=== PATIENT | male | born 1985 | race African-American/Black ===

== ENCOUNTER 2022-10-31 14:06 | Outpatient (AMB) | payer OTHER, SELFPAY ==
[2022-10-31 14:08] VITALS: BP 102/60; PULSE 84; TEMP 36.2; O2SAT 98; BMI 26.6
--- NOTE | 2022-10-31 14:08 | AM.OFFWIN_ITS ---
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 Denies any abdominal pain, shortness of breath, GI symptoms. Reports many of his close contacts have been sick. [facility] Social History Patient Tobacco Use Status: Never used Tobacco Review of Systems Const All systems reviewed & are unremarkable except as noted in HPI and below Physical Exam Vital Signs: Last Vital Signs Temp 97.1 F 10/31/22 14:08 Pulse 84 10/31/22 14:08 BP 102/60 10/31/22 14:08 Pulse Ox 98 10/31/22 14:08 Oxygen Delivery Method Room Air 10/31/22 14:08 BMI result Body Mass Index 26.6 Const General: cooperative, no acute distress and ill appearing acutely HEENT Head: Yes normal to inspection and Yes normocephalic Ears: hearing grossly normal bilaterally, external ears normal and TM's normal bilaterally General nose exam: Normal external nose present and Normal nasal mucous membranes and turbinates present Face and sinus: Yes normal facial exam and Yes sinuses nontender Mouth: Normal oral and palatal mucosa present and moist mucous membranes Throat: Yes posterior oropharynx abnormal (Mild erythema) Neck Neck: Yes no lymphadenopathy Resp Effort & Inspection: normal respiratory effort and able to speak in complete sentences Auscultation: clear to auscultation bilaterally Cardio Jugular venous distension: no JVD Palpation: normal PMI Rate: regular rate Rhythm: regular rhythm Skin General skin exam: no rashes or lesions noted Extrem General: Yes capillary refill normal and Yes no clubbing, cyanosis or edema Psych Appearance: grossly normal Mental Status: mental status grossly normal Speech and movement: Normal speech and movement present Assessment & Plan Assessment & Plan (1) Upper respiratory infection: Code(s): J06.9 - Acute upper respiratory infection, unspecified Qualifiers: URI type: unspecified viral URI Qualified Code(s): J06.9 - Acute upper respiratory infection, unspecified Plan: Symptoms consistent with viral illness. Advised rest, hydration, conservative measures/[id number] medications as needed for symptom management. If he does not improve with time and conservative measures, or if symptoms worsen or new symptoms develop, he can return to the clinic for further evaluation. Viral swab obtained and patient will be notified with these results once they are available. Patient agrees to plan. Orders: Orders SARS-CoV2/FLU/RSV Today J06.9 - Acute upper respiratory infection, unspecified Coding Level of Care Code Est Pt Level 3 (65097) Diagnoses Upper respiratory infection J06.9 URI type: unspecified viral URI
== END 2022-10-31 14:44 | disposition home or self-care (01) ==
PROVIDERS: Visit Provider Nurse Practitioner Family
DX: J06.9 Acute upper respiratory infection, unspecified (principal)
CPT/HCPCS: 99213

== ENCOUNTER 2022-10-31 16:58 | Outpatient (REF) | payer OTHER, SELFPAY ==
[2022-10-31 17:54] LABS: Influenza A PCR NEGATIVE (Negative); Influenza B PCR NEGATIVE (Negative); Resp Syncy Virus RNA Qual PCR NEGATIVE (Negative); SARS COV2 PCR INHOUSE NEGATIVE (Negative)
== END 2022-10-31 16:59 | disposition home or self-care (01) ==
LOC: HO.LNP 16:58
PROVIDERS: Visit Provider Nurse Practitioner Family
DX: J06.9 Acute upper respiratory infection, unspecified (principal); Z20.822 Contact with and (suspected) exposure to COVID-19
CPT/HCPCS: 0241U

== ENCOUNTER 2023-10-09 10:00 | Outpatient (AMB) | payer OTHER, SELFPAY ==
--- NOTE | 2023-10-09 10:09 | A.OFFPC_ITS ---
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 ?? Prior PCP:? Dr Bui in [place], [place] Last office visit/CPE:? a few yrs ago Acute issue(s):? Anxiety w/ PTSD. Had a therapist. Longstanding anxiety and has worsened again. ?? PMHx:?Anxiety w/ PTSD, Syncope x 2 in 2021. Cardiology dx'd bradycardia. SurgHx:?R 4th Metacarpal fracture repair w/ plate. FHx:? Dad: CAD, early LA, arrhythmia and pacer. GM: Lung CA, Pancreatic CA. GF: DM SocHx: Quit 2 yrs ago. EtOH None. MJ Daily. No drugs. 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 1. Little interest or pleasure in doing things: not at all 2. Feeling down, depressed, or hopeless: nearly every day 3. Trouble falling or staying asleep, or sleeping too much: several days 4. Feeling tired or having little energy: nearly every day 5. Poor appetite or overeating: several days 6. Feeling bad about yourself - or that you are a failure or have let yourself or your family down: several days 7. Trouble concentrating on things, such as reading the newspaper or watching television: not at all 8. Moving or speaking so slowly that other people could have noticed. Or the opposite - being so fidgety or restless that you have been moving around a lot more than usual: not at all 9. Thoughts that you would be better off or of hurting yourself in some way: not at all Total score: 9 Depression Screening Interpretation: Positive Depression Screening Done: Yes 24175 - PHQ-9 Billing: Yes Source: Developed by Drs. Rudy Morales, Linda Sahu, Jeffery Choi and colleagues, with an educational brandon from [employer]. Thrive Questionnaire Date Thrive assessed: 10/09/23 I am a: Patient What is your living situation today?: I have a steady place to live Within the past 12 months, did the food you bought not last and you didn't have the money to get more?: Never true Within the past 12 months, did you worry whether your food would run out before you got money to buy more?: Never true Do you have trouble paying for medicines?: No Do you have trouble getting transportation to medical appointments?: No Do you have trouble paying your heating and electricity bill?: No Do you have trouble taking care of your child, family member or friend?: No Do you have trouble with day-to-day activities such as bathing, preparing meals, shopping, managing finances, etc.?: No Are you currently unemployed and looking for a job?: No Are you interested in more education?: No Please select the resources that you would like help with: None Currently or been in a relationship where the following occur: No concerns reported THRIVE Score: 0 AUDIT C Alcohol Use Questionnaire (AUDIT-C) 1. How often do you have a drink containing alcohol?: Never 3. How often do you have six or more drinks on one occasion?: Never Total Score: 0 Score Reviewed/Action Taken: Yes TAD-7 AMB Questionnaire TAD-7 Date TAD - 7 assessed: 10/09/23 Feeling nervous, anxious, or on edge: 3 = Nearly every day Not being able to stop or control worryin = Nearly every day Worrying too much about different things: 3 = Nearly every day Trouble relaxin = Nearly every day Being so restless that it is hard to sit still: 1 = Several days Becoming easily annoyed or irritable: 3 = Nearly every day Feeling afraid as if something awful might happen: 0 = Not at all Total TAD-7 score (0-4 normal; 5-9 mild; 10-14 moderate; 15-21 severe): 16 Source: Developed by Drs. Rudy Morales, Linda Sahu, Jeffery Choi and colleagues, with an educational brandon from [employer]. TAD-7 Assessment Billing TAD-7 Assessment Tool: TAD-7 Assessment 77852 ACT Questionnaire In the past 4 weeks, how much of the time did your asthma keep you from getting as much done at work, school or at home?: Most of the time During the past 4 weeks, how often have you had shortness of breath?: More than once a day During the past 4 weeks, how often did your asthma symptoms wake you up at night or earlier than usual in the morning?: Not at all During the past 4 weeks, how often have you had to use your rescue inhaler or nebulizer medication?: Not at all How would you rate your asthma control during the past 4 weeks?: Somewhat controlled ACT Interpretation: Positive Score: 16 Review of Systems Const Denies chills, Denies fatigue, Denies fever(s), Denies headache(s) and Denies weakness ENT Denies dizziness and Denies headache(s) Card Denies chest pain, Denies lightheadedness, Denies dyspnea and Denies other (Palpitations) Resp Denies cough, Denies dyspnea, Denies wheezing and Denies other ( shortness of breath) Musc Denies numbness and Denies tingling Neuro Denies dizziness, Denies headache(s), Denies numbness, Denies tingling, Denies paresthesias and Denies weakness Psych Reports anxiety Endo Denies fatigue Aller/Immun Denies wheezing Physical exam (Primary Care) Vital Signs: Last Vital Signs Temp 98 F 10/09/23 10:19 Pulse 55 10/09/23 10:19 Resp 18 10/09/23 10:19 BP 100/60 10/09/23 10:19 Pulse Ox 97 10/09/23 10:19 Oxygen Delivery Method Room Air 10/09/23 10:19 BMI result Body Mass Index 29.6 Tobacco/Smoking Status: Tobacco use Status Tobacco use date assessed 10/09/23 10/09/23 10:20 Patient Tobacco Use Status Never used Tobacco 10/09/23 10:20 e-Cigarette/Vaping Use Never Used 10/09/23 10:20 PHQ-9: PHQ-9 Score PHQ-9: Total score 9 10/09/23 10:24 Depression Screening Interpretation: Positive Thrive Assessment: Date of Thrive Assessment Date Thrive assessed 10/09/23 10/09/23 10:20 Currently or been in a relationship where the following occur: No concerns reported Const General: no acute distress and well developed Nutritional Appearance: well nourished Orientation/consciousness: patient oriented x3 HENMT Head: Yes normocephalic and Yes atraumatic Eyes General: appearance normal, both eyes and all related structures Pupils: Equal, round and reactive pupils present EOM: EOMs intact bilaterally Resp Effort & Inspection: normal respiratory effort Auscultation: clear to auscultation bilaterally Cardio Rate: bradycardic Rhythm: regular rhythm Heart sounds: S1 normal heart sound present, S2 normal heart sound present, no gallops, no murmurs and no rubs Neuro General: patient oriented x3 and gait normal Cranial nerves: Yes Equal, round and reactive pupils present Psych Affect: normal affect Assessment and Plan Assessment & Plan (1) Depression with anxiety: Code(s): F41.8 - Other specified anxiety disorders Plan: Depression?and?anxiety - longstanding?symptoms?with?PTSD Patient?also?notes?periods?of?soon?did?depression?alternating?with?elevated?mood . Possible?bipolar?disorder Will?trial?Abilify?at?bedtime Will?ask?the?nurse?navigator?to?connect?him?with?a?therapist (2) PTSD (post-traumatic stress disorder): Code(s): F43.10 - Post-traumatic stress disorder, unspecified Plan: As?above (3) Athlete's foot: Code(s): B35.3 - Tinea pedis Plan: Avoid?excess?moisture?and?change?socks?frequently?throughout?day Will?give?him?a?script?for?terbinafine?cream (4) Bradycardia: Code(s): R00.1 - Bradycardia, unspecified Plan: History?of?bradycardia. P atient?had?seen?a?sheet metal helper?but?had?incomplete?workup.??Syncope?x2?but?not?re cently. Will?check?EKG?at?next?visit May?need?continued?workup (5) History of syncope: Code(s): Z87.898 - Personal history of other specified conditions Plan: As?above (6) Hand pain: Code(s): M79.643 - Pain in unspecified hand Plan: Bilateral?hand?pain Likely?tendinitis?but?possible?arthritis?as?well Start?meloxicam May?need?imaging?or?may?need?referral?to?hand?surgery (7) Laboratory exam ordered as part of routine general medical examination: Code(s): Z00.00 - Encounter for general adult medical examination without abnormal findings Plan: Check?lab Orders: Orders Comprehensive [place]. Panel Fast Today Z00.00 - Encounter for general adult medical examination without abnormal findings Lipid Panel Today Z00.00 - Encounter for general adult medical examination without abnormal findings AMB EKG-In Office Today R00.1 - Bradycardia, unspecified Microalbumin, Random (w Creat) Today I10 - Essential (primary) hypertension TSH reflex Free T4 Today Z00.00 - Encounter for general adult medical examination without abnormal findings UA and rflx microscopic Today Z00.00 - Encounter for general adult medical examination without abnormal findings Referrals Psychiatry Outpatient Consultation Service F41.8 - Other specified anxiety disorders, F43.10 - Post-traumatic stress disorder, unspecified Medications: New aripiprazole (Abilify) 2 mg PO BEDTIME 30 days 30 tabs 1RF terbinafine HCl 1% (Antifungal (terbinafine)) 1 appl topical BID 30 days 30 grams 1RF meloxicam 15 mg PO DAILY 30 days 30 tabs 2RF Coding Level of Care Code New Pt Level 4 (44136) Diagnoses Depression with anxiety F41.8 PTSD (post-traumatic stress disorder) F43.10 Athlete's foot B35.3 Bradycardia R00.1 History of syncope Z87.898 Hand pain M79.643 Laboratory exam ordered as part of routine general medical examination Z00.00 Additional Codes TAD-7 Assessment Billing - ATD-7 Assessment Tool: TAD-7 Assessment 22329 ([id number])
[2023-10-09 10:19] VITALS: BP 100/60; PULSE 55; RESP 18; TEMP 36.6; O2SAT 97; BMI 29.6
== END 2023-10-09 10:59 | disposition home or self-care (01) ==
PROVIDERS: PCP Family Medicine; Visit Provider Family Medicine
DX: F41.8 Other specified anxiety disorders (principal); F43.10 Post-traumatic stress disorder, unspecified; B35.3 Tinea pedis; R00.1 Bradycardia, unspecified; Z87.898 Personal history of other specified conditions; M79.643 Pain in unspecified hand; Z00.00 Encounter for general adult medical examination without abnormal findings
CPT/HCPCS: 96127; 99204

== ENCOUNTER 2023-11-09 14:13 | Outpatient (AMB) | payer OTHER, SELFPAY ==
--- NOTE | 2023-11-09 14:39 | MHC.OFFVISPS ---
Intake Intake Visit Reasons: consultation Basketball Referee Required: No Allergies omeprazole Adverse Reaction (Intermediate, Verified 10/09/23 10:18) Hives Medication List - Last Reconciled 11/09/23 by Carol Livingston APRN aripiprazole (Abilify) 2 mg PO BEDTIME 30 days meloxicam 15 mg PO DAILY 30 days terbinafine HCl 1% (Antifungal (terbinafine)) 1 appl topical BID 30 days HPI- Psychiatric Chief Complaint: consultation HPI Narrative: pt reports significant mood symtpms and anxiety; histroy of childhood adverse events including foster care x first 11 yrs and then back with hismother for one year until into [facility] and [facility] custody after that; reports all a very bad experience. Pt reports being in and outt of incarceraton for fighting and stealing in his teens and 20s. 2011 was the last time he was in senior living. He has worked hard to stabilize his life. 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 He bought his own home and has custody of his son age10. He has a GF and feels bad that his mood effects their relationship. He reports depressed mood, anger episodes, impulsive spending, overeating at night, worrying about everything including house, bills, his work. He reports periods of elevated mood where he feels excessively happy and buys things he doesn't need. He reports these episodes don't last long at most 24 hours until he feels depressed again and regretful He denies nightmares but only sleeps 930-1am abnd then is awake much of the night. He does not know what triggers his anger. He is taking abilify 2mg - he reports no side effects but no relief as well. discussed options for medication and risk of using an antidepressant if pt has bipolar type depression. He agrees to trial of depakote and then will likely increase abilify Past Psychiatric History: many years of therapy and meds in [facility] and [facility] and then in senior living. pt does not recall any particular meds and didnt feel any helped. Subjective Subjective Subjective Medication Compliance: Yes Side effects from medications: No Review of Systems Medical Review of Systems: unchanged Review of Systems Review of Systems bradycardia and hx of syncope Mental Status Exam Mental Status Exam Patient Appearance: Well Grooomed and Appropriate Patient Orientation: Person, Place, Time and Situation Level of Consciousness: Awake and Appropriate Patient Behavior: Appropriate, Cooperative and Crying Mood Description: Sad Affect Description: Sad Patient Cognition Impaired: No Ability to Follow Directions: Good Speech Pattern: Clear Memory Description: Intact Hallucinations: None Delusions: Not Present Thought Process: Intact Thought Content: positive for Intact Judgement: Good Assessment and Plan Assessment & Plan (1) History of syncope: Status: Acute Code(s): Z87.898 - Personal history of other specified conditions (2) Bradycardia: Status: Acute Code(s): R00.1 - Bradycardia, unspecified (3) Bipolar II disorder: Status: Acute Code(s): F31.81 - Bipolar II disorder (4) PTSD (post-traumatic stress disorder): Status: Acute Code(s): F43.10 - Post-traumatic stress disorder, unspecified Plan will use combination of depakote and abilify to treat Bipolar depression and PTSD start low dose due to bradycardia and syncope encouraged fluids and normal salt intake ekg ordered Medications: New divalproex (Depakote) 125 mg orally Take one tablet at bedtime x10 days then increase to 2 tablets at bedtime x 10 days then increase to 3 tablets at bedtime 90 tabs 0RF Orders: Orders ECG 12 lead EKG Today R00.1 - Bradycardia, unspecified, Z87.898 - Personal history of other specified conditions Counseling and coordination of Care Pt. Self Management counseling: Maintenance-social rhythm, Mod caffeine/ETOH intake, Nutrition education and improvement, Sleep hygiene, Behavior activation and General coping skills Medication management counseling: Effectiveness, Side effects, Dosing range, Duration, Drug interaction and Adherence Diagnosis and Prognosis Counseling: Accuracy of diagnosis, Prognosis over time, Impact of diagnosis on life functions, Impact of family relationship, Problematic behaviors secondary to diagnosis and Adequacy of current interventions Details: I spent 75 minutes reviewing the record, seeing the patient and documenting in the medical record. Counseling provided to the patient/caregiver as outlined below. Addressed patient/caregiver concerns regarding current medication regime including effective adherence. Addressed patient/caregiver concerns regarding diagnosis and prognosis including accuracy of diagnosis, prognosis over time, impact of diagnosis. Addressed patient/caregiver concerns regarding impact of recent stressors. 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 has Gf. 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
== END 2023-11-09 15:13 | disposition home or self-care (01) ==
LOC: HO.HOP 14:13
PROVIDERS: PCP Family Medicine; Visit Provider Clinical Nurse Specialist Psychiatric/Mental Health
DX: F31.81 Bipolar II disorder (principal); Z87.898 Personal history of other specified conditions; R00.1 Bradycardia, unspecified; F43.10 Post-traumatic stress disorder, unspecified
CPT/HCPCS: 90792

== ENCOUNTER → 2023-11-09 14:13 | Outpatient (BNVA) | payer OTHER, SELFPAY | PROVIDERS: PCP Family Medicine; Visit Provider Clinical Nurse Specialist Psychiatric/Mental Health | DX: F31.81 Bipolar II disorder (principal); F43.10 Post-traumatic stress disorder, unspecified; R00.1 Bradycardia, unspecified; Z87.898 Personal history of other specified conditions | CPT/HCPCS: 90792 ==

== ENCOUNTER 2023-11-30 22:57 | Outpatient (AMB) | payer OTHER, SELFPAY ==
--- NOTE | 2023-11-30 15:10 | MHC.OFFVISPS ---
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 Required: No Allergies omeprazole Adverse Reaction (Intermediate, Verified 10/09/23 10:18) Hives Medication List - Last Reconciled 11/30/23 by Carol Livingston APRN aripiprazole (Abilify) 2 mg PO BEDTIME 30 days divalproex (Depakote) 125 mg orally Take one tablet at bedtime x10 days then increase to 2 tablets at bedtime x 10 days then increase to 3 tablets at bedtime meloxicam 15 mg PO DAILY 30 days terbinafine HCl 1% (Antifungal (terbinafine)) 1 appl topical BID 30 days HPI- Psychiatric Chief Complaint: f/u consultation HPI Narrative: pt improving ; depression, irritability and anxiety improving; tolerating the depakote; no dizzinesss. will start the Depakote 375mg at bedtime tonight; no SI no HI; has some daytime fatigue; he is working 6 days a week every week. no medical changes; no SI or HI Past Psychiatric History: many years of therapy and meds in [facility] and [facility] and then in residential. pt does not recall any particular meds and didnt feel any helped. Subjective Subjective Subjective Medication Compliance: Yes Side effects from medications: No Review of Systems Medical Review of Systems: unchanged Mental Status Exam Mental Status Exam Patient Appearance: Well Grooomed and Appropriate Patient Orientation: Person, Place, Time and Situation Level of Consciousness: Awake and Appropriate Patient Behavior: Appropriate Mood Description: Calm Affect Description: Calm Patient Cognition Impaired: No Ability to Follow Directions: Good Speech Pattern: Clear Memory Description: Intact Hallucinations: None Delusions: Not Present Thought Process: Intact Thought Content: positive for Intact Judgement: Good Assessment and Plan Assessment & Plan (1) Bipolar II disorder: Status: Acute Code(s): F31.81 - Bipolar II disorder (2) Depression with anxiety: Status: Acute Code(s): F41.8 - Other specified anxiety disorders (3) Bradycardia: Status: Acute Code(s): R00.1 - Bradycardia, unspecified Plan increase depaokte to 375mg at bedtime x 10 days then got to 500mg at bedtime labs ordered VPA level, CBC, CMP and ekg pt has refills will swtich to depakote ER 500mg at bedtime once pt tolerates. continue abilify 2 mg daily Orders: Orders Valproate Today F31.81 - Bipolar II disorder Complete Blood Count Auto Diff Today Z79.899 - Other custodial (current) drug therapy Comprehensive Met. Panel Today Z79.899 - Other custodial (current) drug therapy Vitamin D 25-OH (D2 and D3) Today E55.9 - Vitamin D deficiency, unspecified Counseling and coordination of Care Medication management counseling: Effectiveness, Side effects, Dosing range, Duration, Drug interaction and Adherence Diagnosis and Prognosis Counseling: Accuracy of diagnosis, Prognosis over time, Impact of diagnosis on life functions, Impact of family relationship, Problematic behaviors secondary to diagnosis and Adequacy of current interventions Details: I spent [] minutes reviewing the record, seeing the patient and documenting in the medical record. Counseling provided to the patient/caregiver as outlined below. Addressed patient/caregiver concerns regarding current medication regime including effective adherence. Addressed patient/caregiver concerns regarding diagnosis and prognosis including accuracy of diagnosis, prognosis over time, impact of diagnosis. Addressed patient/caregiver concerns regarding impact of recent stressors. 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 has Gf. 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
== END 2023-11-30 22:58 | disposition home or self-care (01) ==
LOC: HO.HOP 22:57
PROVIDERS: PCP Family Medicine; Visit Provider Clinical Nurse Specialist Psychiatric/Mental Health
DX: F31.81 Bipolar II disorder (principal); F41.8 Other specified anxiety disorders; R00.1 Bradycardia, unspecified
CPT/HCPCS: 99214

== ENCOUNTER → 2023-11-30 22:57 | Outpatient (BNVA) | payer OTHER, SELFPAY | PROVIDERS: PCP Family Medicine; Visit Provider Clinical Nurse Specialist Psychiatric/Mental Health | DX: F31.81 Bipolar II disorder (principal); F41.8 Other specified anxiety disorders; R00.1 Bradycardia, unspecified | CPT/HCPCS: 99212 ==

== ENCOUNTER 2023-12-28 09:28 | Outpatient (REF) | payer OTHER, SELFPAY ==
[2023-12-28 09:47] LABS: MANUAL DIFF FLAG NO
[2023-12-28 10:17] LABS: Basophils Percent Auto 0.6 % (0-2); Eosinophils Absolute Auto 0.3 X10*3/uL (0.0-0.4); Eosinophils Percent Auto 5.1 % (0-4); Hematocrit 44.8 % (42.0-52.0); Hemoglobin 14.9 g/dl (14.0-18.0); Imm Gran Abs Auto 0.02 X10*3/uL (0.00-0.03); Imm Gran Pct Auto 0.4 % (0.0-0.4); Lymphocytes Percent Auto 37.6 % (20-40); Mean Corpuscular HGB Conc 33.3 g/dl (31.0-36.0); Mean Corpuscular Hemoglobin 28.5 pg (27.0-33.0); Mean Corpuscular Volume 85.7 fL (80.0-98.0); Mean Platelet Volume 10.9 fL (9.4-12.4); Monocytes Absolute Auto 0.3 X10*3/uL (0.1-1.2); Neutrophils Absolute Auto 2.7 x10*3/uL (2.0-8.3); Neutrophils Percent Auto 50.3 % (45-73); Platelet Count 204 X10*3/uL (160-400); Red Blood Count 5.23 X10*6/uL (4.60-5.80); Red Cell Distribution Width 13.2 % (11.0-16.0); White Blood Count 5.3 X10*3/uL (4.8-10.8)
[2023-12-28 10:39] LABS: Appearance Urine Clear; Color Urine Yellow; Glucose Urine UA Negative (Negative); Leukocyte Esterase Urine Negative (Negative); Nitrite Urine Negative (Negative); PH 7.5 (5.0-9.0); Specific Gravity - Urine 1.015 (1.005-1.025); Urine Blood Negative (Negative); Urine Ketones Trace mg/dL (Negative); Urine Protein Negative (Neg-Trace)
[2023-12-28 11:00] LABS: Alanine Aminotransferase 34 U/L (0-40); Albumin Level 4.2 g/dL (3.5-5.0); Alkaline Phosphatase 54 U/L (39-117); Anion Gap 11 (12-20); Aspartate Amino Transferase 32 U/L (5-37); Bilirubin Total 1.6 mg/dL (0.0-1.0); Blood Urea Nitrogen 11 mg/dL (9-16); Calcium 9.5 mg/dL (8.4-10.2); Carbon Dioxide 28 mmol/L (22-29); Chloride 107 mmol/L (96-108); Cholesterol 172 mg/dL (<200); Estimated Glomerular Filt Rate > 60; Glucose Fasting 99 mg/dL (60-99); Glucose Random 99 mg/dL (60-115); HDL Cholesterol 40 mg/dL (>40); LDL Cholesterol Calculated 114 mg/dL (<100); Potassium 4.2 mmol/L (3.3-5.1); Sodium 142 mmol/L (135-145); Triglycerides 93 mg/dL (<150)
[2023-12-28 11:05] LABS: TSH reflex Free T4 0.76 uIU/mL (0.32-4.0)
[2023-12-28 11:12] LABS: Creatinine Urine 123.26 mg/dL; Microalbumin Urine < 5.0 mg/L
[2024-01-02 17:04] LABS: Vitamin D 25-OH, D2 <4 ng/mL; Vitamin D 25-OH, D3 17 ng/mL; Vitamin D 25-OH, Total 17 ng/mL (30-100)
== END 2023-12-28 09:29 | disposition home or self-care (01) ==
LOC: HO.LAB 09:28
PROVIDERS: Family Medicine; Visit Provider Clinical Nurse Specialist Psychiatric/Mental Health
DX: Z00.00 Encounter for general adult medical examination without abnormal findings (principal); I10 Essential (primary) hypertension; F31.81 Bipolar II disorder; Z79.899 Other long term (current) drug therapy; E55.9 Vitamin D deficiency, unspecified
CPT/HCPCS: 36415; 80053; 80061; 80164; 81003; 82043; 82306; 82570; 84443; 85025

== ENCOUNTER 2024-05-27 10:50 | Outpatient (AMB) | payer OTHER, SELFPAY ==
--- NOTE | 2024-05-27 10:54 | A.OFFPC_ITS ---
Vital Signs 05/27/24 10:56 Height 5 ft 8 in Weight 213 lb BMI 32.4 BP 110/80 Blood Pressure Location Rt brachial Position Sitting Respiration 10 L Pulse 68 Pulse Source Pulse Oximeter Temp 99.0 F Temp Source Oral Pulse Oximetry (%) 98 Oxygen Delivery Method Room Air Intake Visit Reasons: Feet Issues Intake Note: patient is her to discuss feet sx for podiatry referral.patient would also like to follow up on knee pain from work injury Electronic Console Display Operator Required: No Allergies omeprazole Adverse Reaction (Intermediate, Verified 05/27/24 10:55) Hives Medication List - Last Reconciled 05/27/24 by John Dumont MD aripiprazole (Abilify) 2 mg PO BEDTIME 30 days divalproex ER (Depakote ER) 500 mg PO DAILY meloxicam 15 mg PO DAILY 30 days terbinafine HCl 1% (Antifungal (terbinafine)) 1 appl topical BID 30 days Tobacco use date assessed: 10/09/23 Dental Screening Dental Screen Date: 10/09/23 HPI Feet Issues HPI Details 38 y/o male presents today with complain ts of abnormal odor of his feet. Prior athlete's foot which has improved/resolved. He is requesting referral to podiatry. Also has complaints of knee pain after a fall unto his knee. 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 1. Little interest or pleasure in doing things: not at all 2. Feeling down, depressed, or hopeless: not at all 3. Trouble falling or staying asleep, or sleeping too much: not at all 4. Feeling tired or having little energy: not at all 5. Poor appetite or overeating: not at all 6. Feeling bad about yourself - or that you are a failure or have let yourself or your family down: not at all 7. Trouble concentrating on things, such as reading the newspaper or watching television: not at all 8. Moving or speaking so slowly that other people could have noticed. Or the opposite - being so fidgety or restless that you have been moving around a lot more than usual: not at all 9. Thoughts that you would be better off or of hurting yourself in some way: not at all Total score: 0 Source: Developed by Drs. Rudy Morales, Jeffery Andrews and colleagues, with an educational brandon from [employer]. Thrive Questionnaire Date Thrive assessed: 03/31/24 I am a: Patient What is your living situation today?: I have a steady place to live Within the past 12 months, did the food you bought not last and you didn't have the money to get more?: Sometimes True Within the past 12 months, did you worry whether your food would run out before you got money to buy more?: Sometimes True Do you have trouble paying for medicines?: No Do you have trouble getting transportation to medical appointments?: No Do you have trouble paying your heating and electricity bill?: Yes Do you have trouble taking care of your child, family member or friend?: No Do you have trouble with day-to-day activities such as bathing, preparing meals, shopping, managing finances, etc.?: No Are you currently unemployed and looking for a job?: No Are you interested in more education?: No Please select the resources that you would like help with: Utilities Currently or been in a relationship where the following occur: No concerns reported THRIVE Score: 3 TAD-7 AMB Questionnaire TAD-7 Date TAD - 7 assessed: 10/09/23 Source: Developed by Drs. Rudy Morales, Jeffery Andrews and colleagues, with an educational brandon from [employer]. Physical exam (Primary Care) Vital Signs: Last Vital Signs Temp 99.0 F 05/27/24 10:56 Pulse 68 05/27/24 10:56 Resp 10 L 05/27/24 10:56 BP 110/80 05/27/24 10:56 Pulse Ox 98 05/27/24 10:56 Oxygen Delivery Method Room Air 05/27/24 10:56 BMI result Body Mass Index 32.4 Tobacco/Smoking Status: Tobacco use Status Tobacco use date assessed 10/09/23 05/27/24 10:59 Patient Tobacco Use Status Never used Tobacco 05/27/24 10:59 e-Cigarette/Vaping Use Never Used 05/27/24 10:59 PHQ-9: PHQ-9 Score PHQ-9: Total score 0 05/27/24 10:59 Thrive Assessment: Date of Thrive Assessment Date Thrive assessed 03/31/24 05/27/24 10:59 Currently or been in a relationship where the following occur: No concerns reported Coding Level of Care Code Est Pt Level 3 (63583) Diagnoses Foot odor L74.8 Knee pain M25.569 Assessment & Plan Assessment & Plan (1) Foot odor: Code(s): L74.8 - Other eccrine sweat disorders Category: Medical Plan: Prior?athlete's?foot?symptoms?have?improved/resolved. Patient?is?still?notes?an?odor?and?would?like?a?referral?Podiatry He?can?try?some?Hibiclens Referred?to?Podiatry?as?per?patient?request (2) Knee pain: Code(s): M25.569 - Pain in unspecified knee Category: Medical Plan: L knee pain after fall onto knee Mild?contusion and?possible?small?effusion?of?the?joint This?should?gradually?improve Advised?relative?rest,?ice/heat?and?NSAIDs Call?or?return?to?office?if?not?improving?or?if?worsens Orders: Referrals Podiatry Referral B35.3 - Tinea pedis, L74.8 - Other eccrine sweat disorders
[2024-05-27 10:56] VITALS: BP 110/80; PULSE 68; RESP 10; TEMP 37.2; O2SAT 98; BMI 32.4
--- OUTSIDE RECORDS SUMMARY | 2024-05-27 13:13 | XMS_ITS | Encounter Summary ---
Author Organization [facility] Address [address] [place] [address] Care Team Providers Care Foster Parent Name Role Phone Shakeel Bui MD Primary Care Provider Unavailabl e Reason for Referral * CONSULT AND TREATMENT (Routine) - Auth Not Needed Specialty Diagnoses / Procedures Referred By Contjeanna t Referred To Contact Cardiology Diagnoses Obscure cardiomyopathy of Analilia (HCC) Procedures Dr. Donn Merida [facility] Cardiovascular Physician, , fax [phone], phone [phone] Appt Date: 10/19/21 3 visits Shakeel Bui MD Cerel, Adam W, MD [address] [place] [id number] Phone: tel: fax: Referral ID Status Reason Start Date Expiration Date Visits Requested Visits Authorized [id number] Auth Not Needed Retro Referral request 10/19/2021 11/25/2021 3 3 Encounter Details Date Type Department Care Team (Late st Contact Info) Description 11/16/2021 Orders Only [address] [phone] Shakeel Bui MD Social History Tobacco Use Types Packs/Day Years Used Date Smoking Tobacco: Some Days Cigarettes Smokeless Tobacco: Never Alcohol Use Standard Drinks/Week Comments No 0 (1 standard drink = 0.6 oz pur e alcohol) PHQ-2 Answer Date Recorded PHQ-2 Score 2 03/10/2021 Sex and Gender Information Value Date Recorded Sex Assigned at Male 06/20/2021 9:53 AM EDT Legal Sex Male 12:52 PM EDT Gender Identity Male 06/20/2021 9:53 AM EDT Sexual Orientation Straight 06/20/2021 9: 53 AM EDT documented as of this encounter Plan of Treatment Scheduled Referrals Name Type Priority Associated Diagnoses Orde r Schedule CONSULT CARDIOLOGY NON-FC Referral Routine Obscure cardiomyopathy of Analilia Ordered: 11/16/2021 documented as of this encounter Goals Goal Patient Goal Type Associated Problems Recent Progress Patient-Stated? Author Quit smoking / using tobacco Lifestyle Qiana Jefferson CMA Note: Smoking can cause cancer, heart attacks, hardening of the arteries, bronchitis, emphysema, cough, shortness of breath, wrinkles, and premature aging and premature births. Some benefits of quitting smoking begin right away. Your risk of heart disease begins to decrease as soon as you quit. Your general health may also start to improve immediately because you are not irritating your lungs and more oxygen gets to your body organs. Your blood circulation is likely to get better. Other benefits may include fewer colds and lung infections as well as reduced risk of high blood pressure, stroke, and cancer. Interested in quitting smoking? Discuss medication options with your provider or contact the Quit To Win program at . Any insurance accepted. 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
--- OUTSIDE RECORDS SUMMARY | 2024-05-27 13:13 | XMS_ITS | Clinical Summary ---
Author Organization [facility] Address [address] [place] [address] Care Team Providers Care Experimental Mechanic Name Role Phone Shakeel Bui MD Primary Care Provider Unavailabl e Allergies Active Allergy Reactions Criticality Noted Date Comments Contrast Dye 10/13/2021 Reports previous vomitting with contrast then caused a panic attack. Patient insists on taking the premed. Omeprazole Urticarial Rash 10/19/2017 Medications No known medications Active Problems Problem Noted Date Diagnosed Date Excessive sweating 07/11/2021 Overview (07/11/2021): 07/11/2021 started in the last year. Fatigue 07/11/2021 Overview (07/11/2021): 07/11/2021 drinking coffee often to keep himself awake. He feels he knows the difference with depression and this. But does have some lack of motivation. Getting labs. See bradycardia. Bradycardia 07/11/2021 Overview (10/13/2021): 07/11/2021 appears new onset. HR baseline 70s 1 month ago. Reports rash 2 years ago, getting tested for lyme and babesiosis. Reaching out to cardiology for referral. Large differential of infectious, autoimmune causes. No neurological signs of symptoms, but intracranial disease could cause this. Currently no symptoms other than pain, but at ER presentation had chest and arm pain. - getting work up labs. Holter. Referring to cardiology. If neuro signs develop, will get head CT. - could not get max heart rate in stress test. Has appt with cardiology within 3 months. 10/13/2021 see chest pain problem. Seeing cardiology Dr Merida. Lyme and babesiosis testing negative TAD (generalized anxiety disorder) 03/10/2021 Overview (03/10/2021): 03/10/2021 got son back from [facility]. 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 Most of his stress comes from work. TAD 7 of 17. PHQ9 of 9. Eating less. Advised that he change his job or see therapist. But he says he cannot do this. Starting sertraline 50mg. Marijuana dependence 03/10/2021 Overview (03/10/2021): 03/10/2021 smoking multiple times per day. Admits addiction. Does not want to quit. Feels it keeps him levelheaded. Elevated bilirubin 12/31/2017 Overview (10/10/2021): Lab Results Component Value Date BILI 1.6 (H) 07/11/2021 BILIDIRECT 0.3 (H) 03/10/2021 BILIINDIRECT 1.2 03/10/2021 Lab Results Component Value Date PROTEINTOTAL 7.0 07/11/2021 ALBUMIN 4.6 07/11/2021 BILI 1.6 (H) 07/11/2021 BILIDIRECT 0.3 (H) 03/10/2021 ALKPHOS 58 07/11/2021 AST 21 07/11/2021 ALT 15 07/11/2021 12/31/2017 high direct and total Retesting with hemolysis labs. CT abd normal. 03/13/2021 stable for years. Possibly Gilbert. 07/11/2021 improved from previous.. repeating. 09/26/21 went to ED with syncope. Bilirubin was 3.3. 10/06/2021 did not show for appt. Heroin addiction 10/19/2017 Overview (03/10/2021): 10/19/2017: started methadone july 2015 which is also the last time he used 03/10/2021 off methadone Family history of early CAD 10/19/2017 Overview (10/19/2017): 10/19/2017: Father had WI at age 30 and has had 3 subsequent ones Chest pain 10/19/2017 Overview (10/20/2021): 10/19/2017: left sided chest pain ? 1 month. Associated diaphoresis and palpitations (at times). Given father had an WI at age 30, will get an EKG, labs and stress test today. 03/10/2021 every other day gets intense chest pain. Did not end up getting stress test a few year ago. Has family history. 08/01/2021 stress test: Patient did have chest discomfort at peak stress. ??Difficult to ascertain etiology of symptoms. ??Patient did not reach target heart rate and hence overall nondiagnostic study though he had chest discomfort. ??Can consider further evaluation with other imaging modality such as stress echocardiogram or stress SPECT or CT of the coronary arteries - getting stress echo, has appt with cards within 3 months. 10/13/2021 following now with Cardiology Dr. Donn Merida. Working on getting EP evaluation for bradycardia. Had syncope 1 week ago. Wants order for Sleep study and CTA chest. Ordered CTA. Reaching out to patient to get information for sleep study. - CTA neg for PEs. Mild right atrial enlargement - getting sleep study with mass lung Generalized abdominal pain 10/19/2017 Overview (03/10/2021): 10/19/2017: Abdominal pain is long-standing and reports that he had a colonoscopy and endoscopy in the past, last time he was seen was 5-6 years ago by a GI doctor in [place]. This abdominal pain feels different than his pain back then per his report. This pain is diffuse all over abdomen. He reports he was treated for H. pylori a few months ago and feels his symptoms never resolved. He is also lost 20 pounds in the past 3 months unintentionally. Get some labs, CT abdomen today for further evaluation. No acute abdomen but advised to follow-up in the ER with any worsening symptoms. If persisting in all normal, will send back to GI. 03/10/2021 pain is rare now. Discussed cannabinoid hyperemesis. He does not believe this is it. Weight loss 10/19/2017 Overview (07/11/2021): Wt Readings from Last 6 Encounters: 07/11/21 147 lb 6.4 oz (66.9 kg) 03/10/21 148 lb 6.4 oz (67.3 kg) 10/19/17 144 lb 12.8 oz (65.7 kg) 10/19/2017: Reports 20 pound weight loss in 3 months, unintentional and has good appetite. We will check some labs and a chest x-ray today, given associated abdominal pain, will order a CT for further evaluation. 07/11/2021 weight stable for 4 years. Palpitations 10/19/2017 Overview (03/10/2021): 10/19/2017: Daily, will start with some labs and Holter monitor. Given hx of IVDU, getting echo as well. EKG today. Advised to eliminate caffeine, maximize hydration, stress reduction. 03/10/2021 holter was normal. Continues with palpitations. Treating anxiety. Immunizations Name Administration Dates Next Due COVID-19, mRNA (Moderna Pre Fall 2022) bivalent, 25 mcg/0.25 ml (6 months - 11 years) or 50 mcg/0.5 ml (12+ years) 04/08/2022 COVID-19, mRNA (Pfizer Pre all 2022) Monovalent, 30 mcg/0.3 ml 07/23/2020 Influenza,injectable,quad,Prsrv Fr 12/09/2020 MMR 12/31/2017 PPV23 (Pneumovax) 03/10/2021 Tdap 12/31/2017 influenza,seasonal,trivalent ,PF (Fluzone, Fluarix, Flulaval) 12/23/2015 Family History Medical History Relation Name Comments CAD/PVD - Early Father age 30 had a n WI and has had three since Cancer - Breast Maternal grandmother Cancer - Lung Maternal grandmother Diabetes Paternal grandfather Relation Name Status Comments Father Maternal grandmother Paternal grandfather Social History Tobacco Use Types Packs/Day Years Used Date Smoking Tobacco: Some Days Cigarettes Smokeless Tobacco: Never Alcohol Use Standard Drinks/Week Comments No 0 (1 standard drink = 0.6 oz pur e alcohol) PHQ-2 Answer Date Recorded PHQ-2 Score 2 03/10/2021 Intimate Partner Violence Answer Date R ecorded Fear of Current or Ex-Partner Not on file Emotionally Abused Not on file 11/05/2022 Physically Abused Not on file 11/05/2022 Sexually Abused Not on file 11/05/2022 Feel Safe at Home Not on file 11/05/2022 Sex and Gender Information Value Date Recorded Sex Assigned at Male 06/20/2021 9:53 AM EDT Legal Sex Male 12:52 PM EDT Gender Identity Male 06/20/2021 9:53 AM EDT Sexual Orientation Straight 06/20/2021 9: 53 AM EDT Last Filed Vital Signs Vital Sign Reading Time Taken Comments Blood Pressure 130/75 07/11/2021 11:13 AM EDT Pulse 46 07/11/2021 11:13 AM EDT Temperature 36.9 ??C (98.4 ??F) 06/18/2021 4:33 PM ED T Respiratory Rate 18 06/18/2021 4:33 PM EDT Oxygen Saturation 98% 06/18/2021 4:33 PM EDT Inhaled Oxygen Concentration - - Weight 66.9 kg (147 lb 6.4 oz) 07/11/2021 11:13 AM EDT Height 170.2 cm (5' 7 ) 03/10/2021 1:03 PM EST Body Mass Index 23.09 03/10/2021 1:03 PM EST Plan of Treatment Health Maintenance Due Date Last Done Comments Pneumococcal (2 of 2 - PCV) 03/10/2022 03/10/2021 COVID-19 Vaccine (3 - 2023-2 5 season) 2023 04/08/2022, 07/23/2020 Influenza (#1) 2023 12/09/2020, 12/23/2015 DTaP/Tdap/Td (2 - Td or Tdap) 01/01/2028 12/31/2017 Zoster (Shingrix) (1 of 2) 09/25/2037 Hepatitis C Screening Completed 12/29/2017 Physical Discontinued 03/10/2021 EKG Discontinued 07/29/2021, 03/10/2021, 10/19/2017 Chest Imaging Discontinued 10/14/2021, 09/28/2021, 07/09/2021 HPV Vaccine Aged Out No longer eligi ble based on patient's age to complete this topic Hep A Aged Out No longer eligi ble based on patient's age to complete this topic Hib Aged Out No longer eligi ble based on patient's age to complete this topic Meningococcal ACWY Aged Out No longer eligible based on patient's age to complete this topic Goals Goal Patient Goal Type Associated Problems [...] at . Any insurance accepted. Quit smoking resources-http://[employer].org Procedures * Due to [place] [employer] law, this organization might not be sharing negative HIV tests. Procedure Name Priority Date/Time Associated Diagnosis Comments CTA CHEST W/ CONTRAST TO R/O PE (DX: SOB/CP) SAME DAY- CALL RADIOLOGY TO SCHED STAT (All results called to provider) 10/14/2021 10:29 AM EDT Bradycardia Chest pain, unspecified type CARDIOVASCULAR STRESS TEST W/TREADMILL, BICYCLE, AND/OR PHARMACOLOGICAL STRESS; W/ SUPERV/INTERP Routine 07/29/2021 1:49 PM EDT Nonspecific chest pain HEPATITIS PANEL, ACUTE W/REFLEX Routine 12/29/2017 12:36 PM EDT Weight loss from Last 3 Months or Most Recently Relevant to Health Maintenance Results * Due to [place] [employer] law, this organization might not be sharing negative HIV tests. * CTA CHEST W/ CONTRAST TO R/O PE (DX: SOB/CP R06.89/ 786.09) SAME DAY- CALL RADIOLOGY TO [facility] (10/14/2021 10:29 AM EDT) Anatomical Region Laterality Modality CHEST Computed Tomogra phy 10/14/2021 10:5 2 AM EDT Narrative 10/14/2021 10:52 AM EDT CONTRAST: 100 mL Visipaque CTA chest. Comparison: None. Technique: Axial sections following intravenous contrast with coronal maximum intensity projections. Findings: No intraluminal filling defects within the pulmonary arteries. ?? Aorta is normal caliber without dissection. ?? Mild right atrial enlargement. ?? No pericardial thickening or pericardial effusion. ?? No significant detected calcific coronary artery atherosclerosis. No airspace consolidation, pneumothorax, pleural effusion, or suspicious lung nodules. ?? No adenopathy. ?? No suspicious bony lesions. IMPRESSION: Negative for pulmonary embolus. Mild right atrial enlargement. Procedure Note Lucila New MD - 10/14/2021 CONTRAST: 100 mL Visipaque CTA chest. Comparison: None. Technique: Axial sections following intravenous contrast with coronalmaximum intensity projections. Findings: No intraluminal filling defects within the pulmonary arteries. Aorta is normal caliber without dissection. Mild right atrial enlargement. No pericardial thickening or pericardial effusion. No significant detected calcific coronary artery atherosclerosis. No airspace consolidation, pneumothorax, pleural effusion, or suspiciouslung nodules. No adenopathy. No suspicious bony lesions. IMPRESSION: Negative for pulmonary embolus. Mild right atrial enlargement. Shakeel Bui MD IMG CT WITH CONTRAST ORDERABLES Final Result * (ABNORMAL) CARDIOVASCULAR STRESS TEST W/TREADMILL, BICYCLE, AND/OR PHARMACOLOGICAL STRESS; W/ SUPERV/INTERP FOR CARDIOLOGY DEPT USE ONLY (07/29/2021 1:49 PM EDT) ETT BASELINE HR 51 beats/min ETT BASELINE SYSTOLIC BP 116 mmHg ETT BASELINE DIASTOLIC BP 72 mmHg ETT EXERCISE TIME MINUTES 6 minutes ETT EXERCISE TIME SECONDS 16 secs ETT METS 7.7 METS ETT PEAK HR 118 beats/min ETT % MAXIMAL PEAK HR 63 % ETT PEAK SYSTOLIC BP 146 mmHg ETT PEAK DIASTOLIC BP [address]UTION OF ST SEGMENTS ETT RESOLUTION OF SYMPTOMS 3:50 minutes Comment:into recovery ETT PERSANTINE DOSE ETT LEXISCAN DOSE Impressions Frieda Salomon MD - 07/29/2021 1:49 PM EDT IV. Impression: Poor functional capacity for age. Blunted heart rate response to exercise. Normal BP response to exercise. Exercise induced chest pain at peak exercise Overall non diagnostic due to failure to achieve 85% of MPHR. Yanez Treadmill Score: 2 - Intermediate Risk Patient did have chest discomfort at peak stress. ??Difficult to ascertain etiology of symptoms. ??Patient did not reach target heart rate and hence overall nondiagnostic study though he had chest discomfort. ??Can consider further evaluation with other imaging modality such as stress echocardiogram or stress SPECT or CT of the coronary arteries Interpreted and electronically signed by: Frieda Salomon MD on 07/31/2021. Narrative Frieda Salomon MD - 07/29/2021 1:49 PM EDT I. Patient Overview Referring Physician: Shakeel Bui MD ??Interpreting Laboratory Analyst: Dr. Frieda Salomon Performing Provider: CLARISSA Olivas ?? Type of Stress Test: Exercise Treadmill with Kian Protocol Indication for Test: chest pain Baseline ECG: sinus bradycardia with sinus arrhythmia, LVH Patient has been assessed by PA and is appropriate to proceed with testing and has consented to same- Yes. II. Exercise Test Data Reason Test Terminated:SOB, patient fatigue, and patient request ECG Response: No ECG changes ??Symptoms:7/10 chest pain endorsed at peak exercise with resolution of pain at 3:50 into recovery. Arrhythmias: none us Shakeel Bui MD CARDIOVASCULAR-WITH INBSKT RTG F inal Result * HEPATITIS PANEL, ACUTE W/REFLEX (12/29/2017 12:36 PM EDT) Hepatitis A virus Ab.IgM NON-REACTI VE NON-REACT [place] [facility] Hepatitis B virus surface Ag NON-REACTI VE NON-REACT [place] [facility] Hepatitis B virus core Ab.IgM NON-REACTI VE NON-REACT [place] [facility] Hepatitis C virus Ab NON-REACTI VE NON-REACT [place] [facility] Hepatitis C virus Ab Signal/Cutoff 0.01 <1.00 [facility] 12/29/2017 12:3 6 PM EDT 12/29/2017 3:39 PM EDT Narrative Resulting Agency Comment [id number] us Maryam Kingston NP LABORATORY Final Result [facility] [address] [place] [address] from Last 3 Months or Most Recently Relevant to Health Maintenance Care Teams Experimental Mechanic Relationship Specialty Start Date End Date Shakeel Bui MD PCP - General Family Medicine 10/10/17
--- OUTSIDE RECORDS SUMMARY | 2024-05-27 13:13 | XMS_ITS | Encounter Summary ---
Author Organization [facility] Address [address] [place] [id number] Care Team Providers Care Security Police Officer Name Role Phone Shakeel Bui MD Primary [facility] Encounter Details Date Type Department Care Team (Late st Contact Info) Description 10/13/2021 Telephone CALL CENTER [facility] [address] [place] [phone] Shakeel Bui MD Social History Tobacco Use [...] as of this encounter Plan of Treatment Not on file documented as of this encounter Goals Goal Patient Goal Type Associated Problems Recent Progress Patient-Stated? Author Quit smoking / using tobacco Lifestyle No Qiana Blackburn CMA Note: Smoking can cause cancer, heart [...] at . Any insurance accepted. Quit smoking resources-[email or web address] documented as of this encounter Visit Diagnoses Not on filedocumented in this encounter Care Teams Security Police Officer Relationship Specialty Start Date End Date Shakeel Bui MD PCP - General Family Medicine 10/10/17 documented as of this encounter
--- OUTSIDE RECORDS SUMMARY | 2024-05-27 13:13 | XMS_ITS | Encounter Summary ---
Author Organization [facility] Address [address] [place] [address] Care Team Providers Care Medical Imaging Specialist Name Role Phone Shakeel Bui MD Primary Care Provider Unavailabl e Encounter Details Date Type Department Care Team ([facility] st Contact Info) Description 10/21/2017 Orders Only [facility] [address] [place] [address] Maryam Kingston NP [address] [place] [address] Social History Tobacco Use Types Packs/Day Years Used Date Smoking Tobacco: Some Days Cigarettes Smokeless Tobacco: Never Alcohol Use Standard Drinks/Week Comments No 0 (1 standard drink = 0.6 oz pur e alcohol) Sex and Gender Information Value Date Recorded [...] smoking / using tobacco Lifestyle No Qiana Blackburn, CADEN Note: Smoking can cause cancer, heart attacks, [...] at . Any insurance accepted. Quit smoking resources-[email or web address] documented as of this encounter Procedures * Due to [place] M9 Defense law, this organization might not be sharing negative HIV tests. Procedure Name Priority Date/Time Associated Diagnosis Comments HELICOBACTER PYLORI AGDETECTION, EIA, STOOL Routine 10/21/2017 9:00 AM EDT Generalized abdominal pain documented in this encounter Results * Due to [place] M9 Defense law, this organization might not be sharing negative HIV tests. * HELICOBACTER PYLORI AGDETECTION, EIA, STOOL (10/21/2017 9:00 AM EDT) H. Pylori Antigen SEE NOTE [facility] Comment: ??HELICOBACTER PYLORI AG, EIA, STOOL ??MICRO NUMBER: ?[id number] ??TEST STATUS: ? FINAL ??SPECIMEN SOURCE: ?? STOOL ??SPECIMEN QUALITY: ??ADEQUATE ??RESULT: ?Not Detected ? Antimicrobials, proton pump inhibitors, and ? bismuth preparations inhibit H. pylori and ? ingestion up to two weeks prior to testing may ? cause false negative results. If clinically ? indicated the test should be repeated on a new ? specimen obtained two weeks after discontinuing ? treatment. 10/21/2017 9:00 AM EDT 10/21/2017 7:15 PM EDT Narrative Resulting Agency Comment [id number] Maryam Kingston NP LABORATORY Final Result Performing Organization Address City/State/[facility] Co de Phone Number [facility] [address] [place] [address] documented in this encounter Visit Diagnoses Diagnosis Generalized abdominal pain Abdominal pain, generalized documented in this encounter Care Teams Medical Imaging Specialist Relationship Specialty Start Date End Date Shakeel Bui MD PCP - General Family Medicine 10/10/17 documented as of this encounter
--- OUTSIDE RECORDS SUMMARY | 2024-05-27 13:13 | XMS_ITS | Encounter Summary ---
Author Organization [facility] Address [address] [place] [address] Care Team Providers Care Network And Threat Support Specialist Name Role Phone Shakeel Bui MD Primary Care Provider Unavailabl e Encounter Details Date Type Department Care Team ([facility] st Contact Info) Description 10/19/2017 Orders Only [facility] [address] [place] [address] Maryam Kingston NP [address] [place] [address] Social History Tobacco Use Types [...] AM EDT documented as of this encounter Progress Notes * Maryam Pro NP - 11/13/2017 7:27 AM EDT Will review at 11/15 appointment * Maryam Pro NP - 10/21/2017 2:44 PM EDT Ok to let patient know all labs are unremarkable except bilirubin is slightly elevated. Will need to check some additional labs for further eval. I would recommend an HIV as well if he is ok with it,just need his consent first. And please document consent. The CT abd I ordered will be helpful as well. Labs ordered. We will follow up with all results. documented in this encounter Plan of Treatment Not on [...] at . Any insurance accepted. Quit smoking resources-[email or web address] documented as of this encounter Procedures * Due to [place] state law, this organization might not be sharing negative HIV tests. Procedure Name Priority Date/Time Associated Diagnosis Comments EKG-TO BE READ & BILLED BY ADULT OR PEDIATRIC CARDIOLOGY Routine 10/19/2017 2:22 PM EDT Chest pain, unspecified type C-REACTIVE PROTEIN (CRP) - INFLAMMATION Routine 10/19/2017 2:17 PM EDT Generalized abdominal pain CBC INCLUDES DIFFERENTIAL AND PLATELET COUNT Routine 10/19/2017 2:17 PM EDT Chest pain, unspecified type Generalized abdominal pain THYROID STIMULATING HORMONE (TSH) WITH FREE T4 REFLEX, SERUM Routine 10/19/2017 2:17 PM EDT Chest pain, unspecified type Generalized abdominal pain MAGNESIUM, SERUM Routine 10/19/2017 2:17 PM EDT Palpitations LIPASE, SERUM Routine 10/19/2017 2:17 PM EDT Generalized abdominal pain AMYLASE, SERUM Routine 10/19/2017 2:17 PM EDT Generalized abdominal pain COMPREHENSIVE METABOLIC PANEL WITH GFR Routine 10/19/2017 2:17 PM EDT Generalized abdominal pain documented in this encounter Results * Due to [place] state law, this organization might not be sharing negative HIV tests. * EKG-TO BE READ AND BILLED BY CARDIOLOGY (10/19/2017 2:22 PM EDT) VENTRICULAR RATE 42 BPM MUS E EKG SYSTEM ATRIAL RATE 42 BPM MUSE EKG SYSTEM P-R INTERVAL 180 ms MUSE EK G SYSTEM QRS DURATION 110 ms MUSE EK G SYSTEM QT 436 ms MUSE EKG SYSTEM QTC 364 ms MUSE EKG SYSTEM P AXIS 52 degrees MUSE EKG SYSTEM R AXIS 87 degrees MUSE EKG SYSTEM T AXIS 62 degrees MUSE EKG SYSTEM EKG INTERPRETATION Marked sinus bradycardia Minimal voltage criteria for LVH, may be normal variant Abnormal ECG No previous ECGs available Confirmed by SAMANTHA PHILLIPS ([id number]) on 10/22/2017 9:03:08 PM MUSE EKG SYSTEM 10/19/2017 2:22 PM EDT 10/22/2017 9:03 PM EDT Maryam Kingston NP CARDIOVASCULAR-WITH INBSKT RTG Final Result MUSE EKG SYSTEM * MAGNESIUM, SERUM (10/19/2017 2:17 PM EDT) Magnesium 1.7 1.5 - 2.5 mg/dL [facility] 10/19/2017 2:17 PM EDT 10/19/2017 11:51 PM EDT Narrative Resulting Agency Comment [id number] Maryam Kingston INCIDENT ANALYST LABORATORY Final Result [facility] [address] [place] [address] * (ABNORMAL) COMPREHENSIVE METABOLIC PANEL WITH GFR (10/19/2017 2:17 PM EDT) Glucose 55(L) 65 - 99 mg/dL [facility] Comment:Fasting reference in terval Urea Nitrogen Blood (BUN) 13 7 - 25 mg/dL [facility] Creatinine 1.15 0.60 - 1.35 mg/dL [facility] GFR 85 > OR = 60 mL/min/1 .73m2 [facility] GFR () 98 > OR = 60 mL/min/1 .73m2 [facility] BUN/Creatinine Ratio NOT APPLICABLE 6 - 22 (calc) [facility] Sodium 143 135 - 146 mmol/L [facility] Potassium 4.2 3.5 - 5.3 mmol/L [facility] Chloride 106 98 - 110 mmol/L [facility] Carbon dioxide 29 20 - 32 mmol/L [facility] Calcium 9.1 8.6 - 10.3 mg/dL [facility] Protein Total (Serum) 6.7 6.1 - 8.1 g/dL [facility] Albumin 4.3 3.6 - 5.1 g/dL [facility] Globulin 2.4 1.9 - 3.7 g/dL (calc) [facility] Albumin/Globuli n 1.8 1.0 - 2.5 (calc) [facility] Bilirubin Total 1.6(H) 0.2 - 1.2 mg/dL [facility] Alkaline phosphatase 57 40 - 115 U/L [facility] AST (SGOT) 16 10 - 40 U/L [facility] ALT (SGPT) 12 9 - 46 U/L [facility] 10/19/2017 2:17 PM EDT 10/19/2017 11:51 PM EDT Narrative [facility] - 10/20/2017 1:36 AM EDT Please note that this estimated GFR does not include an adjustment for the patient's height or weight, and can therefore, be viewed as reliable only for patients with heights between 60 and 72 . More precise quantification using a 24-hour urine sample or height-based algorithm is recommended for patients outside of this range of height and for those individuals with more precise needs for GFR calculation. Resulting Agency Comment [id number] us Maryam Kingston NP LABORATORY Final Result [facility] [address] [place] [address] * C-REACTIVE PROTEIN (CRP) - INFLAMMATION (10/19/2017 2:17 PM EDT) C reactive protein 0.5 <8.0 mg/L [facility] 10/19/2017 2:17 PM EDT 10/19/2017 11:51 PM EDT Narrative Resulting Agency Comment [id number] us Maryam Kingston INCIDENT ANALYST LABORATORY Final Result Performing Organization Address [facility] Co de Phone Number [facility] [address] [place] [address] * LIPASE, SERUM (10/19/2017 2:17 PM EDT) Lipase 29 7 - 60 U/L [facility] 10/19/2017 2:17 PM EDT 10/19/2017 11:51 PM EDT Narrative Resulting Agency Comment [id number] us Maryam Kingston INCIDENT ANALYST LABORATORY Final Result Performing Organization Address [facility] de Phone Number [facility] [address] [place] [phone] * AMYLASE, SERUM (10/19/2017 2:17 PM EDT) Amylase 46 21 - 101 U/L [facility] 10/19/2017 2:17 PM EDT 10/19/2017 11:51 PM EDT Narrative Resulting Agency Comment [id number] us Maryam Kingston INCIDENT ANALYST LAB SAME DAY RESULT Final Resul t Performing Organization Address [facility] Co de Phone Number [facility] [address] [place] [address] * THYROID STIMULATING HORMONE (TSH) WITH FREE T4 REFLEX, SERUM (10/19/2017 2:17 PM EDT) TSH 1.45 0.40 - 4.50 mIU/L [facility] 10/19/2017 2:17 PM EDT 10/19/2017 11:51 PM EDT Narrative Resulting Agency Comment [id number] us Maryam Kingston INCIDENT ANALYST LABORATORY Final Result Performing Organization Address [facility]/ZIP Co de Phone Number [facility] [address] [place] [address] * CBC INCLUDES DIFFERENTIAL AND PLATELET COUNT (10/19/2017 2:17 PM EDT) WBC 6.2 3.8 - 10.8 Thousand/u L [facility] RBC 4.93 4.20 - 5.80 Million/uL [facility] Hemoglobin 13.7 13.2 - 17.1 g/dL [facility] Hematocrit 40.6 38.5 - 50.0 % [facility] MCV 82.4 80.0 - 100.0 fL [facility] MCH 27.8 27.0 - 33.0 pg [facility] MCHC 33.7 32.0 - 36.0 g/dL [facility] RDW 13.5 11.0 - 15.0 % [facility] PLT 170 140 - 400 Thousand/u L [facility] MPV 11.4 7.5 - 12.5 fL [facility] Neutrophils # 3106 1500 - 7800 cells/uL [facility] Lymphocytes # 2499 850 - 3900 cells/uL [facility] Monocytes # 298 200 - 950 cells/uL [facility] Eosinophils # 260 15 - 500 cells/uL [facility] Basophils # 37 0 - 200 cells/uL [facility] Neutrophils % 50.1 % [facility] Lymphocytes % 40.3 % [facility] Monocytes % 4.8 % [facility] Eosinophils % 4.2 % [facility] Basophils % 0.6 % [facility] 10/19/2017 2:17 PM EDT 10/19/2017 11:51 PM EDT Narrative Resulting Agency Comment [id number] Maryam Kingston INCIDENT ANALYST LAB SAME DAY RESULT Final Resul t [facility] [address] [place] [address] documented in this encounter Visit Diagnoses Diagnosis Chest pain, unspecified type Generalized abdominal pain Abdominal pain, generalized Palpitations documented in this encounter Care Teams Network And Threat Support Specialist Relationship Specialty Start Date End Date Shakeel Bui MD PCP - General Family Medicine 10/10/17 documented as of this encounter
--- OUTSIDE RECORDS SUMMARY | 2024-05-27 13:13 | XMS_ITS | Referral Summary ---
Author Organization [facility] Address [address] [place] [address] Care Team Providers Care Motor Carrier Inspector Name Role Phone Patient, Has No Pcp Or Ref Primary Care Provider Unavailable Allergies Active Allergy Reactions Criticality Noted Date Comments Omeprazole Hives 10/19/2017 Other reaction(s): Urticarial Rash Medications No known medications Active Problems Problem Noted Date Diagnosed Date Hydronephrosis with renal calculous obstruction 06/16/2020 Overview (06/16/2020): 2 mm left ureterovesicular junction obstructive calculus. Nausea & vomiting 06/16/2020 Diarrhea 06/16/2020 Hypokalemia 06/16/2020 Bradycardia, sinus 06/16/2020 SONAL (acute kidney injury) 06/16/2020 Viral gastroenteritis 03/26/2015 Right hand pain 03/13/2014 PTSD (post-traumatic stress disorder) 03/13/2014 Depression with anxiety 03/13/2014 Left upper quadrant abdominal pain 05/05/2013 Resolved Problems Problem Noted Date Diagnosed Date Resolved Date Substance abuse 08/12/2015 06/16/2020 Overview (06/16/2020): No longer using these substances. Cocaine abuse 08/12/2015 06/16/2020 Overview (06/16/2020): No longer using this substance. Social History Tobacco Use Types Packs/Day Years Used Date Smoking Tobacco: Every Day Cigarettes 1 24 Smokeless Tobacco: Current Tobacco Cessation:Ready to Q uit: No; Counseling Given: No Comments:: Alcohol Use Standard Drinks/Week Comments No 0 (1 standard drink = 0.6 oz pur e alcohol) Sex and Gender Information Value Date Recorded Sex Assigned at Not on file Legal Sex Male 1:01 AM EDT Gender Identity Not on file Sexual Orientation Not on file Last Filed Vital Signs Vital Sign Reading Time Taken Comments Blood Pressure 133/77 07/06/2022 9:08 AM EDT Pulse 68 07/06/2022 9:08 AM EDT Temperature 36.7 ??C (98 ??F) 07/06/2022 9:08 AM EDT Respiratory Rate 18 07/06/2022 9:08 AM EDT Oxygen Saturation 100% 07/06/2022 9:08 AM EDT Inhaled Oxygen Concentration - - Weight 77.1 kg (170 lb) 07/06/2022 9:08 AM EDT Height 172.7 cm (5' 8 ) 06/16/2020 7:00 AM EDT Body Mass Index 25.85 06/16/2020 7:00 AM EDT Plan of Treatment Not on file Insurance [facility] MEDICAID WORKERS COMPENSATION on file Advance Directives * Full Code (Latest Code Status on File) Date Activated Date Inactivated Comments 06/16/2020 2:54 PM 06/16/2020 6:41 PM * Presumed Full Code Date Activated Date Inactivated Comments 06/16/2020 11:07 AM 06/16/2020 2:54 PM Healthcare Agents on File Name Relationship Healthcare Agent Relationship Communication Brittany Baum Mother Next of Kin Care Teams Motor Carrier Inspector Relationship Specialty Start Date End Date Patient, Has No Pcp Or Ref DO NOT EDIT THIS RECORD VIA PROVIDER ON THE FLY PCP - General Passenger Conductor 07/06/22
--- OUTSIDE RECORDS SUMMARY | 2024-05-27 13:13 | XMS_ITS | Patient Health Record ---
Author Organization [facility] Address [address] [place], [place] [id number] Care Team Providers Care Ceiling Installer Name Role Phone Curly Cantor Unavailable [phone] Magnolia CASAS, Donn Unavailable Unavailable Reason For Referral No Information Problems Problem Type SNOMED Code ICD Code Onset Dates Problem Status W/U Status Risk Notes Problem Obstructive sleep apnea (21472556) Obstructive sleep apnea (G47.33) Active confirmed Plan Of Treatment No Information Insurance Providers Payer Name Payer Address Payer Phone Subscriber Number Group Number Insured Name Patient Relationship to Insured Coverage Start Date Coverage End Date Medicaid [address] [place] [phone] [id number] Rasheed Farris Self - patient is the insured
--- OUTSIDE RECORDS SUMMARY | 2024-05-27 13:13 | XMS_ITS | Encounter Summary ---
Author Organization [facility] Address [address] [place] [address] Care Team Providers Care Jewelry Sales Name Role Phone Shakeel Bui MD Primary Care Provider Unavailabl e Encounter Details Date Type Department Care Team ([facility] st Contact Info) Description 12/29/2017 Orders Only [facility] [address] [place] [address] Shakeel Bui MD Social History Tobacco Use [...] at . Any insurance accepted. Quit smoking resources-[email or web address] documented as of this encounter Procedures * Due to [place] UTOPY law, this organization might not be sharing negative HIV tests. Procedure Name Priority Date/Time Associated Diagnosis Comments VARICELLA-ZOSTER VIRUS (VZV) ANTIBODY IGG, SERUM Routine 12/29/2017 12:36 PM EDT Screening examination for infectious disease MEASLES IGG AB (RUBEOLA) Routine 12/29/2017 12:36 PM EDT Screening examination for infectious disease RUBELLA ANTIBODY IGG, SERUM Routine 12/29/2017 12:36 PM EDT Screening examination for infectious disease MUMPS VIRUS ANTIBODY, IGG, SERUM Routine 12/29/2017 12:36 PM EDT Screening examination for infectious disease HEPATITIS B SURFACE ANTIBODY, QUANTITATIVE (FOR IMMUNITY) Routine 12/29/2017 12:36 PM EDT Screening examination for infectious disease documented in this encounter Results * Due to [place] UTOP[place] law, this organization might not be sharing negative HIV tests. * VARICELLA-ZOSTER VIRUS (VZV) ANTIBODY IGG, SERUM (12/29/2017 12:36 PM EDT) Varicella zoster virus Ab.IgG 509.70 index [facility] Comment: ? Index ? Interpretation ? --------- ?<135.00 ?Negative - Antibody not detected ?135.00 - 164.99 ?Equivocal ?> or = 165.00 ?Positive - Antibody detected ?A positive result indicates that the patient ?has antibody to VZV but does not differentiate ?between an active or past infection. ?The clinical diagnosis must be interpreted in ?conjunction with the clinical signs and symptoms of ?the patient. This assay reliably measures immunity ?due to previous infection but may not be ?sensitive enough to detect antibodies induced by ?vaccination. Thus, a negative result in a vaccinated ?individual does not necessarily indicate ?susceptibility to VZV infection. 12/29/2017 12:3 6 PM EDT 12/29/2017 4:28 PM EDT Narrative Resulting Agency Comment [id number] Shakeel Bui MD LABORATORY Final Result Performing Organization Address [facility] de Phone Number [employer] [address] [place] [address] * HEPATITIS B SURFACE ANTIBODY, QUANTITATIVE (FOR IMMUNITY) (12/29/2017 12:36 PM EDT) Hepatitis B virus surface Ab 62 > OR = 10 mIU/mL [employer] Comment: PATIENT HAS IMMUNITY TO HEPATITIS B VIRUS. For additional information, please refer to http://education.[employer]/faq/MDC709 (This link is being provided for informational/ educational purposes only). 12/29/2017 12:3 6 PM EDT 12/29/2017 4:28 PM EDT Narrative Resulting Agency Comment [id number] Shakeel Bui MD LABORATORY Final Result Performing Organization Address [facility] de Phone Number [facility] [address] [place] [address] * MUMPS VIRUS ANTIBODY, IGG, SERUM (12/29/2017 12:36 PM EDT) Mumps virus Ab.IgG 40.60 AU/mL [facility] Comment: AU/mL ? Interpretation ------- ? <9.00 ? Negative 9.00-10.99 ?Equivocal >10.99 ?Positive A positive result indicates that the patient has antibody to mumps virus. It does not differentiate between an ??active or past infection. The clinical diagnosis must be interpreted in conjunction with clinical signs and symptoms of the patient. 12/29/2017 12:3 6 PM EDT 12/29/2017 4:28 PM EDT Narrative Resulting Agency Comment [id number] Shakeel Bui MD LABORATORY Final Result Performing Organization Address [facility] de Phone Number [facility] [address] [place] [address] * MEASLES IGG AB (RUBEOLA) (12/29/2017 12:36 PM EDT) Measles virus Ab.IgG 82.40 AU/mL [facility] Comment: AU/mL ?Interpretation ----- ? <25.00 ? Negative 25.00-29.99 ?Equivocal >29.99 ? Positive A positive result indicates that the patient has antibody to measles virus. It does not differentiate between an active or past infection. The clinical diagnosis must be interpreted in conjunction with clinical signs and symptoms of the patient. 12/29/2017 12:3 6 PM EDT 12/29/2017 4:28 PM EDT Narrative Resulting Agency Comment [id number] Shakeel Bui MD LABORATORY Final Result Performing Organization Address [facility] de Phone Number [facility] [address] [place] [address] * (ABNORMAL) RUBELLA ANTIBODY IGG, SERUM (12/29/2017 12:36 PM EDT) Rubella virus Ab.IgG <0.90(L) index [facility] Comment: ?Index ?Interpretation ?----- ?<0.90 ?Not consistent with Immunity ?0.90-0.99 ?Equivocal ?> or = 1.00 ?Consistent with Immunity The presence of rubella IgG antibody suggests immunization or past or current infection with rubella virus. 12/29/2017 12:3 6 PM EDT 12/29/2017 4:28 PM EDT Narrative Resulting Agency Comment [id number] Shakeel Bui MD LABORATORY Final Result Performing Organization Address City/State/[facility] Co de Phone Number [facility] [address] [place] [address] documented in this encounter Visit Diagnoses Diagnosis Screening examination for infectious disease Screening examination for unspecified infectious disease documented in this encounter Care Teams Jewelry Sales Relationship Specialty Start Date End Date Shakeel Bui MD PCP - General Family Medicine 10/10/17 documented as of this encounter
--- OUTSIDE RECORDS SUMMARY | 2024-05-27 13:13 | XMS_ITS | Clinical Summary ---
Author Organization [facility] Address [address] [place] [address] Care Team Providers Care Sports Photographer Name Role Phone Patient, Has No Pcp [...] Overview (06/16/2020): No longer using this substance. Family History Medical History Relation Name Comments Other Maternal Grandfather Family history of Alcohol poisoning Other Maternal Grandmother Family History of malignant neoplasm Other Mother Family History of asthma /Family history of Harden's esophagus Other Other 1 Grandfather Fam carmelo History of diabetes mellitus Other Other 2 Grandmother Fam carmelo History of diabetes mellitus Relation Name Status Comments Maternal Grandfather Maternal Grandmother Mother Other 1 Other 2 Social History Tobacco Use Types Packs/Day Years [...] 06/16/2020 7:00 AM EDT Plan of Treatment Health Maintenance Due Date Last Done Comments HIV Screening 1987 Varicella Vaccines (1 of 2 - 13+ 2-dose series) 09/25/2000 Hepatitis B Vaccines (1 of 3 - 19+ 3-dose series) 09/25/2006 COVID-19 Vaccine ( - 2023-2 5 season) 2023 04/08/2022, 08/06/2020, 07/23/2020 Influenza Vaccine (#1) 2023 , 12/23/2015 Alcohol/Substance Use Screening 03/05/2024 DTaP,Tdap,and Td Vaccines (2 - Td or Tdap) 01/01/2028 12/31/2017 RSV Vaccine (60+ years old and patients) (1 - 1-dose 75+ series) 09/25/2062 Pneumococcal Vaccine: Pediatric (0-5 Years) and At-Risk Patients (6-50 Years) Aged Out 03/10/2021 No longer eligible based on patient's age to complete this topic Insurance [facility] MEDICAID WORKERS COMPENSATION on file Advance Directives * Full Code (Latest Code Status on File) Date Activated Date Inactivated Comments 06/16/2020 2:54 PM 06/16/2020 6:41 PM * Presumed Full Code Date Activated Date Inactivated Comments 06/16/2020 11:07 AM 06/16/2020 2:54 PM Healthcare Agents on File Name Relationship Healthcare Agent Relationship Communication Brittany Baum Mother Next of Kin Care Teams Sports Photographer Relationship Specialty Start Date End Date Patient, Has No Pcp Or Ref DO NOT EDIT THIS RECORD VIA PROVIDER ON THE FLY PCP - General Bottle Blowing Machine Tender 07/06/22
--- OUTSIDE RECORDS SUMMARY | 2024-05-27 13:13 | XMS_ITS | Encounter Summary ---
Author Organization [facility] Address [address] [place] [address] Care Team Providers Care Lead Mechanic Name Role Phone Patient, Has No Pcp Or Ref Primary Care Provider Unavailable Encounter Details Date Type Department Care Team (Late st Contact Info) Description 10/12/2021 Orders Only [facility] CT Scan [address] [place] [address] Carlos Eduardo Coto MD [address] [place] [address] Social History Tobacco Use Types Packs/Day Years Used Date Smoking Tobacco: Every Day Cigarettes 1 24 Smokeless Tobacco: Current Comments:: Alcohol Use Standard Drinks/Week Comments No 0 (1 standard drink = 0.6 oz pur e alcohol) Sex and Gender Information Value Date Recorded Sex Assigned at Not on file Legal Sex Male 1:01 AM EDT Gender Identity Not on file Sexual Orientation Not on file documented as of this encounter Plan of Treatment Not on file documented as of this encounter Visit Diagnoses Not on filedocumented in this encounter Care Teams Lead Mechanic Relationship Specialty Start Date End Date Patient, Has No Pcp Or Ref DO NOT EDIT THIS RECORD VIA PROVIDER ON THE FLY PCP - General Spike Machine Feeder 07/06/22 documented as of this encounter
--- OUTSIDE RECORDS SUMMARY | 2024-05-27 13:13 | XMS_ITS | Encounter Summary ---
Author Organization [facility] Address [address] [place] [address] Care Team Providers Care Education Research Analyst Name Role Phone Shakeel Bui MD Primary Care Provider Unavailabl e Reason for Visit * Reason Onset Date Comments Refill Request 10/13/2021 Allergic Reaction 10/13/2021 Prior Allergic reaction or Possible Allergic reaction to Contrast solution Encounter Details Date Type Department Care Team (Late st Contact Info) Description 10/13/[address] [address] Shakeel Bui MD Refill Request ; Allergic Reaction (Prior Allergic reaction or Possible Allergic reaction to Contrast solution) Social History Tobacco Use Types Packs/Day Years [...] AM EDT documented as of this encounter Miscellaneous Notes * Telephone Encounter - Holly Ballesteros RN - 10/13/2021 1:03 PM EDT Prednisone and benadryl sent Patient aware of provider message, aware how to take meds documented in this encounter Plan of Treatment [...] at . Any insurance accepted. Quit smoking resources-[email or web address] documented as of this encounter Visit Diagnoses Not on filedocumented in this encounter Care Teams Education Research Analyst Relationship Specialty Start Date End Date Shakeel Bui MD PCP - General Family Medicine 10/10/17 documented as of this encounter
== END 2024-05-27 11:31 | disposition home or self-care (01) ==
LOC: HO.HMCFM 10:51
PROVIDERS: PCP Family Medicine; Visit Provider Family Medicine
DX: L74.8 Other eccrine sweat disorders (principal); M25.569 Pain in unspecified knee

== ENCOUNTER → 2024-05-27 10:50 | Outpatient (BNVA) | payer OTHER, SELFPAY | PROVIDERS: PCP Family Medicine; Visit Provider Family Medicine | DX: R74.8 Abnormal levels of other serum enzymes (principal); M25.562 Pain in left knee | CPT/HCPCS: 99212 ==

== ENCOUNTER 2025-01-23 14:58 | Outpatient (AMB) | payer OTHER, SELFPAY ==
--- NOTE | 2025-01-23 15:08 | MHC.PC.OV ---
Vital Signs 01/23/25 15:10 Height 5 ft 8 in Weight 191 lb 4 oz BMI 29.1 BP 118/62 Blood Pressure Location Rt brachial Position Sitting Respiration 14 Pulse 68 Pulse Source Pulse Oximeter Temp 99.2 F Temp Source Oral Pulse Oximetry (%) 98 Oxygen Delivery Method Room Air Intake Visit Reasons: Back injury 2 weeks ago from 01/02 Intake Note: patient is scheduled to follow up with pcp for back injury Project Coordinator Rn Required: No Allergies omeprazole Adverse Reaction (Intermediate, Verified 01/23/25 15:09) Hives Medication List - Last Reconciled 01/23/25 by John Dumont MD aripiprazole (Abilify) 2 mg PO BEDTIME 30 days divalproex ER (Depakote ER) 500 mg PO DAILY meloxicam 15 mg PO DAILY 30 days terbinafine HCl 1% (Antifungal (terbinafine)) 1 appl topical BID 30 days Tobacco use date assessed: 10/09/23 Dental Screening Dental Screen Date: 10/09/23 HPI Back injury 2 weeks ago from 01/02 HPI Details 39 y/o male presents today with complaints of back pain. Reports difficulty with sitting, standing. Notes pain goes down both his legs. Reports longstanding diarrhea. 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 Current occupational exposures/hazards: No Cognitive needs: No Hearing needs: No Vision needs: Yes Questionnaire Thrive Questionnaire Date Thrive assessed: 03/31/24 I am a: Patient What is your living situation today?: I have a steady place to live Within the past 12 months, did the food you bought not last and you didn't have the money to get more?: Sometimes True Within the past 12 months, did you worry whether your food would run out before you got money to buy more?: Sometimes True Do you have trouble paying for medicines?: No Do you have trouble getting transportation to medical appointments?: No Do you have trouble paying your heating and electricity bill?: Yes Do you have trouble taking care of your child, family member or friend?: No Do you have trouble with day-to-day activities such as bathing, preparing meals, shopping, managing finances, etc.?: No Are you currently unemployed and looking for a job?: No Are you interested in more education?: No Please select the resources that you would like help with: Utilities Currently or been in a relationship where the following occur: No concerns reported THRIVE Score: 3 TAD-7 AMB Questionnaire TAD-7 Date TAD - 7 assessed: 10/09/23 Source: Developed by Drs. Rudy Morales, Linda Sahu, Jeffery Choi and colleagues, with an educational brandon from [employer]. Review of Systems Const Denies chills, Denies fatigue, Denies fever(s), Denies headache(s) and Denies weakness ENT Denies dizziness and Denies headache(s) Card Denies dyspnea Resp Denies cough, Denies dyspnea, Denies wheezing and Denies other (shortness of breath) Musc Denies numbness and Denies tingling Neuro Denies dizziness, Denies headache(s), Denies numbness, Denies tingling and Denies weakness Psych Denies anxiety and Denies depression Endo Denies fatigue Aller/Immun Denies wheezing Physical exam (Primary Care) Vital Signs: Last Vital Signs Temp 99.2 F 01/23/25 15:10 Pulse 68 01/23/25 15:10 Resp 14 01/23/25 15:10 BP 118/62 01/23/25 15:10 Pulse Ox 98 01/23/25 15:10 Oxygen Delivery Method Room Air 01/23/25 15:10 BMI result Body Mass Index 29.1 Tobacco/Smoking Status: Tobacco use Status Tobacco use date assessed 10/09/23 01/23/25 15:13 Patient Tobacco Use Status Never used Tobacco 01/23/25 15:13 e-Cigarette/Vaping Use Never Used 01/23/25 15:13 Thrive Assessment: Date of Thrive Assessment Date Thrive assessed 03/31/24 01/23/25 15:13 Currently or been in a relationship where the following occur: No concerns reported Const General: well developed; No acute distress Nutritional Appearance: well nourished Orientation/consciousness: patient oriented x3 HENMT Head: Yes normocephalic and Yes atraumatic Eyes General: appearance normal, both eyes and all related structures Pupils: Equal, round and reactive pupils present EOM: EOMs intact bilaterally Resp Effort & Inspection: normal respiratory effort Neuro General: patient oriented x3 and gait normal Cranial nerves: Yes Equal, round and reactive pupils present Psych Affect: normal affect Coding Level of Care Code Est Pt Level 3 (62649) Diagnoses Back pain M54.9 Assessment & Plan Assessment & Plan (1) Back pain: Code(s): M54.9 - Dorsalgia, unspecified Category: Medical Plan: Likely chronic, recurrent back strain and overuse syndrome Recommend ice/heat and NSAIDs Referred to physical therapy Short course of cyclobenzaprine Symptoms for greater than six weeks. Will check x-ray Orders: Orders PT Evaluation and Treatment Today M54.9 - Dorsalgia, unspecified XR lumbar spine 2-3V Today M54.9 - Dorsalgia, unspecified Medications: New ibuprofen 600 mg PO TID PRN 90 tabs 0RF pain 30 days cyclobenzaprine 10 mg PO BEDTIME PRN 5 tabs 0RF muscle spasm 5 days
--- OUTSIDE RECORDS SUMMARY | 2025-01-23 15:09 | XMS_ITS | Clinical Summary ---
Author Organization [facility] Address [address] [place] [address] Care Team Providers Care Pneumatic Jack Operator Name Role Phone Ref, Has No Pcp Or Primary Care Provider Unavail able Allergies Active Allergy Reactions Criticality Noted Date [...] 68 07/06/2022 9:08 AM EDT Temperature 36.7 C (98 F) 07/06/2022 9:08 AM EDT Respiratory Rate 18 [...] of 3 - 19+ 3-dose series) 09/25/2006 Pneumococcal Vaccine: Pediat yosi (0-5 Years) and At-Risk Patients (6-50 Years) (2 of 2 - PCV) 03/10/2022 03/10/2021 Alcohol/Substance Use Screening 03/05/2024 Influenza Vaccine (#1) 2024 12/09/2020, 2015 COVID-19 Vaccine ( - 2024- season) 2024 04/08/2022, 08/06/2020, 07/23/2020 DTaP,Tdap,and Td Vaccines (2 - Td or Tdap) 01/01/2028 12/31/2017 Insurance [facility] MEDICAID WORKERS COMPENSATION on file Advance Directives * Full Code (Latest Code Status on File) Date Activated Date Inactivated Comments 06/16/2020 2:54 PM 06/16/2020 6:41 PM * Presumed Full Code Date Activated Date Inactivated Comments 06/16/2020 11:07 AM 06/16/2020 2:54 PM Healthcare Agents on File Name Relationship Healthcare Agent Relationship Communication Brittany Joe Next of Kin Care Teams Pneumatic Jack Operator Relationship Specialty Start Date End Date Ref, Has No Pcp Or DO NOT EDIT THIS RECORD VIA PROVIDER ON THE FLY PCP - General Price Analyst 07/06/22
--- OUTSIDE RECORDS SUMMARY | 2025-01-23 15:09 | XMS_ITS | Encounter Summary ---
Author Organization [facility] Address [address] [place] [address] Care Team Providers Care Commercial Marketing Specialist Name Role Phone Shakeel Bui MD Primary Care Provider Unavailabl e Encounter Details Date Type Department Care Team ([facility] st Contact Info) Description 10/21/2017 Orders Only [facility] [place] [address] [place] [address] Maryam Kingston NP [address] [place] [address] Social History Tobacco Use Types [...] at . Any insurance accepted. Quit smoking resources-[email or web address] documented as of this encounter Procedures * Due to [place] CRESCEL law, this organization might not be sharing negative HIV tests. Procedure Name Priority Date/Time Associated Diagnosis Comments HELICOBACTER PYLORI AGDETECTION, EIA, STOOL Routine 10/21/2017 9:00 AM EDT Generalized abdominal pain documented in this encounter Results * Due to [place] CRESCEL law, this organization might not be sharing negative HIV tests. * HELICOBACTER PYLORI AGDETECTION, EIA, STOOL (10/21/2017 9:00 AM EDT) H. Pylori Antigen SEE NOTE [facility] Comment: HELICOBACTER PYLORI AG, EIA, STOOL MICRO NUMBER: [id number] TEST STATUS: FINAL SPECIMEN SOURCE: STOOL SPECIMEN QUALITY: ADEQUATE RESULT: Not Detected Antimicrobials, proton pump inhibitors, and bismuth preparations inhibit H. pylori and ingestion up to two weeks prior to testing may cause false negative results. If clinically indicated the test should be repeated on a new specimen obtained two weeks after discontinuing treatment. 10/21/2017 9:00 AM EDT 10/21/2017 7:15 PM EDT Narrative Resulting Agency Comment [id number] Maryam Kingston RESEARCH ADMINISTRATOR LABORATORY Final Result [facility] [address] [place] [address] documented in this encounter Visit Diagnoses Diagnosis Generalized abdominal pain Abdominal pain, generalized documented in this encounter Care Teams Commercial Marketing Specialist Relationship Specialty Start Date End Date Shakeel Bui MD PCP - General Family Medicine 10/10/17 documented as of this encounter
--- OUTSIDE RECORDS SUMMARY | 2025-01-23 15:09 | XMS_ITS | Encounter Summary ---
Author Organization [facility] Address [address] [place] [address] Care Team Providers Care Dish Stacker Name Role Phone Shakeel Bui MD Primary Care Provider Unavailabl e Encounter Details Date Type Department Care Team ([facility] st Contact Info) Description 10/19/2017 Orders Only [facility] [address] [place] [address] Maryam Kingston NP [address] [place] [address] Social History Tobacco Use Types [...] at . Any insurance accepted. Quit smoking resources-[email or web address] documented as of this encounter Procedures * Due to [place] state law, this organization might not be [...] in this encounter Results * Due to [place] state law, this organization might not be [...] 11:51 PM EDT Narrative Resulting Agency Comment [id number] Maryam Kingston SHOULDER SAWYER LABORATORY Final Result [facility] [address] [place] [address] * (ABNORMAL) COMPREHENSIVE METABOLIC PANEL WITH GFR [...] needs for GFR calculation. Resulting Agency Comment [id number] us Maryam Kingston NP LABORATORY Final Result [facility] [address] [place] [address] * C-REACTIVE PROTEIN (CRP) - INFLAMMATION (10/19/2017 2:17 PM EDT) C reactive protein 0.5 <8.0 mg/L [facility] 10/19/2017 2:17 PM EDT 10/19/2017 11:51 PM EDT Narrative Resulting Agency Comment [id number] us Maryam Kingston [facility] Final Result Performing Organization Address [facility] [address]/[facility] Co de Phone Number [facility] [address] [place] [address] * LIPASE, SERUM (10/19/2017 2:17 PM EDT) Lipase 29 7 - 60 U/L [facility] 10/19/2017 2:17 PM EDT 10/19/2017 11:51 PM EDT Narrative Resulting Agency Comment [id number] us Maryam Kingston [facility] Final Result Performing Organization Address [facility] [address]/[facility] de Phone Number [facility] [address] [place] [phone] * AMYLASE, SERUM (10/19/2017 2:17 PM EDT) Amylase 46 21 - 101 U/L [facility] 10/19/2017 2:17 PM EDT 10/19/2017 11:51 PM EDT Narrative Resulting Agency Comment [id number] us Maryam Kingston [facility] SAME DAY RESULT Final Resul t Performing Organization Address [facility] [address]/[facility] Co de Phone Number [facility] [address] [place] [address] * THYROID STIMULATING HORMONE (TSH) WITH FREE T4 REFLEX, SERUM (10/19/2017 2:17 PM EDT) TSH 1.45 0.40 - 4.50 mIU/L [facility] 10/19/2017 2:17 PM EDT 10/19/2017 11:51 PM EDT Narrative Resulting Agency Comment [id number] us Maryam Kingston [facility] Final Result Performing Organization Address [facility] [address]/ZIP Co de Phone Number [facility] [address] [place] [address] * CBC INCLUDES DIFFERENTIAL AND PLATELET COUNT [...] 11:51 PM EDT Narrative Resulting Agency Comment [id number] Maryam Kingston [facility] SAME DAY RESULT Final Resul t [facility] [address] [place] [address] documented in this encounter Visit Diagnoses Diagnosis Chest pain, unspecified type Generalized abdominal pain Abdominal pain, generalized Palpitations documented in this encounter Care Teams Dish Stacker Relationship Specialty Start Date End Date Shakeel Bui MD PCP - General Family Medicine 10/10/17 documented as of this encounter
--- OUTSIDE RECORDS SUMMARY | 2025-01-23 15:09 | XMS_ITS | Encounter Summary ---
Author Organization [facility] Address [address] [place] [address] Care Team Providers Care Fiber Technologist Name Role Phone Ref, Has No Pcp Or Primary Care Provider Unavail able Encounter Details Date Type Department Care Team (Late st Contact Info) Description 10/12/2021 Orders Only [facility] [address] [place] [address] Carlos Eduardo Coto MD [address] [place] [address] Social History Tobacco Use Types Packs/Day Years [...] on filedocumented in this encounter Care Teams Fiber Technologist Relationship Specialty Start Date End Date Ref, Has No Pcp Or DO NOT EDIT THIS RECORD VIA PROVIDER ON THE FLY PCP - General Film Editor Supervisor 07/06/22 documented as of this encounter
--- OUTSIDE RECORDS SUMMARY | 2025-01-23 15:09 | XMS_ITS | Encounter Summary ---
Author Organization [facility] Address [address] [place] [address] Care Team Providers Care Applications Analyst Name Role Phone Shakeel Bui MD Primary Care Provider Unavailabl e Encounter Details Date Type Department Care Team (Late st Contact Info) Description 10/13/2021 Telephone CALL [facility] [address] [place] [address] Shakeel Bui MD Social History Tobacco Use [...] AM EDT documented as of this encounter Functional Status * Chance of Dozing/Sleepin=Never-3=Likely Question Answer Date of Assessment Author 1. Sitting and reading? 3 10/13/2021 1:00 P M EDT Reva Ohara LPN 2. Watching TV? 3 10/13/2021 1:00 PM EDT Reva Ibrahim LPN 3. Sitting inactive in a pub lic place? 0 10/13/2021 1:00 PM EDT Reva Ohara LP N 4. Being a passenger in a mo tor vehicle for an hour or >? 3 10/13/2021 1:00 PM EDT [place] Ohara ra, LPN 5. Lying down in the afternoon? 0 2 1:00 PM EDT Reva Ohara LPN 6. Sitting and talking to someone? 0 2021 1:00 PM EDT Reva Ohara LPN 7. Sitting quietly after fady ch (no alcohol) 0 10/13/2021 1:00 PM EDT Reva Ohara LP N 8. Stopped for a few minutes in traffic while driving? 0 10/13/2021 1:00 PM EDT Reva Ohara LPN * TOTAL SCORE 0-9 is Normal. > 9 suggests possible Sleep Apnea Question Answer Date of Assessment Author Total Score (equals your ESS )-Staff Entered 9 10/13/2021 1:00 PM EDT Reva Ohara LP N documented as of this encounter Plan of [...] at . Any insurance accepted. Quit smoking resources-[email or web address] documented as of this encounter Visit Diagnoses Not on filedocumented in this encounter Care Teams Applications Analyst Relationship Specialty Start Date End Date Shakeel Bui MD PCP - General Family Medicine 10/10/17 documented as of this encounter
--- OUTSIDE RECORDS SUMMARY | 2025-01-23 15:09 | XMS_ITS | Encounter Summary ---
Author Organization [facility] Address [address] [place] [address] Care Team Providers Care Glass Sander Name Role Phone Shakeel Bui MD Primary Care Provider Unavailabl e Reason for Referral * CONSULT AND TREATMENT (Routine) - Auth Not Needed Specialty Diagnoses / Procedures Referred By Contjeanna t Referred To Contact Cardiology Diagnoses Obscure cardiomyopathy of Analilia (HCC) Procedures Dr. Donn Merida [facility] Cardiovascular Physician, , fax [phone], phone [phone] Appt Date: 10/19/21 3 visits Shakeel Bui MD Cerel, Adam W, MD [address] [place] [address] Phone: tel: fax: Referral ID Status Reason Start Date Expiration Date Visits Requested Visits Authorized [id number] Auth Not Needed Retro Referral request 10/19/2021 11/25/2021 3 3 Question Answer When do you want this visit to occur? RETRO REFERRAL Appointment with MD or AP? FIRST AVAILABLE Patient is being referred outside of [facility] for the following reason, however final determination for [id number] requests are made by the Referral Management Department Patient Preference Track Order? Yes Please provide pertinent patient history. 142.8 Which provider/facility/agency would you like to refer to? (specify if you want first available regardless of location) [facility] Cardiovascular Physician, , fax [phone], phone [phone] - 6 visits Encounter Details Date Type Department Care Team (Late st Contact Info) Description 11/16/2021 Orders Only [facility] [address] [place] [address] Shakeel Bui MD Social History Tobacco Use [...] at . Any insurance accepted. 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
--- OUTSIDE RECORDS SUMMARY | 2025-01-23 15:09 | XMS_ITS | Encounter Summary ---
Author Organization [facility] Address [address] [place] [address] Care Team Providers Care Pharmacy Account Director Name Role Phone Shakeel Bui MD Primary Care Provider Unavailabl e Reason for Visit * Reason Onset Date Comments Refill Request 10/13/2021 Allergic Reaction 10/13/2021 Prior Allergic reaction or Possible Allergic reaction to Contrast solution Encounter Details Date Type Department Care Team (Late st Contact Info) Description 10/13/[address] [address] Shakeel Bui MD Refill Request ; Allergic [...] LP N documented as of this encounter Miscellaneous Notes [...] at . Any insurance accepted. Quit smoking resources-[email or web address] documented as of this encounter Visit Diagnoses Not on filedocumented in this encounter Care Teams Pharmacy Account Director Relationship Specialty Start Date End Date Shakeel Bui MD PCP - General Family Medicine 10/10/17 documented as of this encounter
--- OUTSIDE RECORDS SUMMARY | 2025-01-23 15:09 | XMS_ITS | Patient Health Record ---
Author Organization [facility] Address [address] [place], [place] [address] Care Team Providers Care Foreign Broadcast Specialist Name Role Phone Curly Cantor Unavailable [phone] Magnolia CASAS, Donn Unavailable Unavailable Reason For Referral No Information Problems Problem Type SNOMED Code ICD Code Onset Dates Problem Status W/U Status Risk Notes Problem Obstructive sleep apnea (93189051) Obstructive sleep apnea (G47.33) Active confirmed Plan Of Treatment No Information Insurance Providers Payer Name Payer Address Payer Phone Subscriber Number Group Number Insured Name Patient Relationship to Insured Coverage Start Date Coverage End Date Medicaid [address] [place] [phone] [id number] Rasheed Farris Self - patient is the insured
--- OUTSIDE RECORDS SUMMARY | 2025-01-23 15:09 | XMS_ITS | Encounter Summary ---
Author Organization [facility] Address [address] [place] [address] Care Team Providers Care Coater Smoking Pipe Name Role Phone Shakeel Bui MD Primary Care Provider Unavailabl e Encounter Details Date Type Department Care Team ([facility] st Contact Info) Description 12/29/2017 Orders Only [facility] [address] [place] [address] Shakeel Bui MD Social History Tobacco Use [...] at . Any insurance accepted. Quit smoking resources-http://makesmoGlobeImmune.[email or web address] documented as of this encounter Procedures * Due to [facility] law, this organization might not be sharing [...] this encounter Results * Due to [place] law, this organization might not be sharing negative HIV tests. * VARICELLA-ZOSTER VIRUS (VZV) ANTIBODY IGG, SERUM (12/29/2017 12:36 PM EDT) Varicella zoster virus Ab.IgG 509.70 index [facility] Comment: Index Interpretation --------- <135.00 Negative - Antibody not detected 135.00 - 164.99 Equivocal > or = 165.00 Positive - Antibody detected A positive result indicates that the patient has antibody to VZV but does not differentiate between an active or past infection. The clinical diagnosis must be interpreted in conjunction with the clinical signs and symptoms of the patient. This assay reliably measures immunity due to previous infection but may not be sensitive enough to detect antibodies induced by vaccination. Thus, a negative result in a vaccinated individual does not necessarily indicate susceptibility to VZV infection. 12/29/2017 12:3 6 PM EDT 12/29/2017 4:28 PM EDT Narrative Resulting Agency Comment [id number] Shakeel Bui MD LABORATORY Final Result Performing Organization Address [facility] Co de Phone Number [facility] [address] [id number] * HEPATITIS B SURFACE ANTIBODY, QUANTITATIVE (FOR IMMUNITY) (12/29/2017 12:36 PM EDT) Pathologist [facility] Hepatitis B virus surface Ab 62 > OR = 10 mIU/mL [facility] Comment: PATIENT HAS IMMUNITY TO HEPATITIS B VIRUS. For additional information, please refer to http://education.Zakaz.ua/faq/XZT359 (This link is being provided for informational/ educational purposes only). 12/29/2017 12:3 6 PM EDT 12/29/2017 4:28 PM EDT Narrative Resulting Agency Comment [id number] Shakeel Bui MD LABORATORY Final Result Performing Organization Address [facility] Co de Phone Number [facility] [address] [place] [address] * MUMPS VIRUS ANTIBODY, IGG, SERUM (12/29/2017 12:36 PM EDT) [facility] Mumps virus Ab.IgG 40.60 AU/mL [facility] Comment: AU/mL Interpretation ------- <9.00 Negative 9.00-10.99 Equivocal >10.99 Positive A positive result indicates that the patient has antibody to mumps virus. It does not differentiate between an active or past infection. The clinical diagnosis must be interpreted in conjunction with clinical signs and symptoms of the patient. 12/29/2017 12:3 6 PM EDT 12/29/2017 4:28 PM EDT Narrative Resulting Agency Comment [id number] Shakeel Bui MD LABORATORY Final Result Performing Organization Address [facility] Co de Phone Number [facility] [address] [place] [address] * MEASLES IGG AB (RUBEOLA) (12/29/2017 12:36 PM EDT) Measles virus Ab.IgG 82.40 AU/mL [facility] Comment: AU/mL Interpretation ----- <25.00 Negative 25.00-29.99 Equivocal >29.99 Positive A positive result indicates that the patient has antibody to measles virus. It does not differentiate between an active or past infection. The clinical diagnosis must be interpreted in conjunction with clinical signs and symptoms of the patient. 12/29/2017 12:3 6 PM EDT 12/29/2017 4:28 PM EDT Narrative Resulting Agency Comment [id number] Shakeel Bui MD LABORATORY Final Result Performing Organization Address [facility] Co de Phone Number [facility] [address] [place] [address] * (ABNORMAL) RUBELLA ANTIBODY IGG, SERUM (12/29/2017 12:36 PM EDT) Pathologist [facility] Rubella virus Ab.IgG <0.90(L) index [facility] Comment: Index Interpretation ----- <0.90 Not consistent with Immunity 0.90-0.99 Equivocal > or = 1.00 Consistent with Immunity The presence of rubella IgG antibody suggests immunization or past or current infection with rubella virus. 12/29/2017 12:3 6 PM EDT 12/29/2017 4:28 PM EDT Narrative Resulting Agency Comment [id number] Shakeel Bui MD LABORATORY Final Result Performing Organization Address [facility] Co de Phone Number [facility] [address] [place] [address] documented in this encounter Visit Diagnoses Diagnosis Screening examination for infectious disease Screening examination for unspecified infectious disease documented in this encounter Care Teams Coater Smoking Pipe Relationship Specialty Start Date End Date Shakeel Bui MD PCP - General Family Medicine 10/10/17 documented as of this encounter
[2025-01-23 15:10] VITALS: BP 118/62; PULSE 68; RESP 14; TEMP 37.3; O2SAT 98; BMI 29.1
--- OUTSIDE RECORDS SUMMARY | 2025-01-23 15:10 | XMS_ITS | Clinical Summary ---
Author Organization [facility] Address [address] [place] [address] Care Team Providers Care Founder And Chief Executive Officer Name Role Phone Shakeel Bui MD [...] Overview (03/10/2021): 03/10/2021 got son back from [facility]. 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 Most of his stress comes from work. [...] CAD 10/19/2017 Overview (10/19/2017): 10/19/2017: Father had IA at age 30 and has had 3 subsequent ones Chest pain 10/19/2017 Overview (10/20/2021): 10/19/2017: left sided chest pain 1 month. Associated diaphoresis and palpitations (at times). Given father had an IA at age 30, will get an EKG, labs and stress test today. 03/10/2021 every other day gets intense chest pain. Did not end up getting stress test a few year ago. Has family history. 08/01/2021 stress test: Patient did have chest discomfort at peak stress. Difficult to ascertain etiology of symptoms. Patient did not reach target heart rate and hence overall nondiagnostic study though he had chest discomfort. Can consider further evaluation with other imaging modality [...] years ago by a GI doctor in [place]. This abdominal pain feels different than his [...] normal. Continues with palpitations. Treating anxiety. Immunizations Immunization Administration Dates Next Due COVID-19, mRNA (Moderna Pre Fall 2022) bivalent, 25 mcg/0.25 ml (6 months - 11 years) or 50 mcg/0.5 ml (12+ years) 04/08/2022 COVID-19, mRNA (Pfizer Pre 2022) Monovalent, 30 mcg/0.3 ml 07/23/2020 Influenza,injectable,quad,Prsrv Fr 12/09/2020 MMR 12/31/2017 PPV23 (Pneumovax) 03/10/2021 Tdap 12/31/2017 influenza,seasonal,trivalent ,PF (Fluzone, Fluarix, Flulaval) 12/23/2015 Family History Medical History Relation Name Comments CAD/PVD - Early Father age 30 had a n IA and has had three since Cancer - [...] of Current or Ex-Partner Not on file 09 /05/2022 Emotionally Abused Not on file 11/05/2022 Physically [...] 46 07/11/2021 11:13 AM EDT Temperature 36.9 C (98.4 F) 06/18/2021 4:33 PM EDT Respiratory Rate 18 06/18/2021 4:33 PM EDT Oxygen Saturation 98% 06/18/2021 4:33 PM EDT Inhaled Oxygen Concentration - - Weight 66.9 kg (147 lb 6.4 oz) 07/11/2021 11:13 AM EDT Height 170.2 cm (5' 7 ) 03/10/2021 1:03 PM EST Body Mass Index 23.09 03/10/2021 1:03 PM EST Plan of Treatment Health Maintenance Due Date Last Done Comments COVID-19 Vaccine (2024-04 6 season) 2024 04/08/2022, 07/23/2020 Influenza (#1) 2024 12/09/2020, 12/23/2015 DTaP/Tdap/Td (2 - Td or Tdap) 01/01/2028 12/31/2017 Zoster (Shingrix) (1 of 2) 09/25/2037 Hepatitis C Screening Completed 12/29/2017 Physical Discontinued 03/10/2021 Pneumococcal Aged Out 03/10/2021 No longer eligi ble based on patient's age to complete this topic EKG Discontinued 07/29/2021, 03/10/2021, 10/19/2017 Chest Imaging Discontinued 10/14/2021, 09/28/2021, 07/09/2021 HPV Vaccine (No Doses Required) Completed Hep A Aged Out No longer eligi [...] at . Any insurance accepted. Quit smoking resources-http://EquipRent.[email or web address] Procedures * Due to [place] [employer] law, this organization might not be sharing [...] to Health Maintenance Results * Due to [place] [employer] law, this organization might not be sharing negative HIV tests. * CTA CHEST W/ CONTRAST TO R/O PE (DX: SOB/CP R06.89/ 786.09) SAME DAY- CALL RADIOLOGY TO SCHED FC (10/14/2021 10:29 AM EDT) Anatomical Region Laterality [...] pneumothorax, pleural effusion, or suspicious lung nodules. No adenopathy. No suspicious bony lesions. [...] did have chest discomfort at peak stress. Difficult to ascertain etiology of symptoms. Patient did not reach target heart rate and hence overall nondiagnostic study though he had chest discomfort. Can consider further evaluation with other imaging modality such as stress echocardiogram or stress SPECT or CT of the coronary arteries Interpreted and electronically signed by: Frieda Salomon MD on 07/31/2021. Narrative Frieda Salomon MD - 07/29/2021 1:49 PM EDT I. Patient Overview Referring Physician: Shakeel Bui MD Interpreting Client Support Manager: Dr. Frieda Salomon Performing Provider: CLARISSA Olivas Type of Stress Test: Exercise Treadmill with Kian Protocol Indication for Test: chest pain Baseline ECG: sinus bradycardia with sinus arrhythmia, LVH Patient has been assessed by PA and is appropriate to proceed with testing and has consented to same- Yes. II. Exercise Test Data Reason Test Terminated:SOB, patient fatigue, and patient request ECG Response: No ECG changes Symptoms:7/10 chest pain endorsed at peak exercise with resolution of pain at 3:50 into recovery. Arrhythmias: none us Shakeel Bui MD CARDIOVASCULAR-WITH INBSKT RTG F inal Result * HEPATITIS PANEL, ACUTE W/REFLEX (12/29/2017 12:36 PM EDT) Hepatitis A virus Ab.IgM NON-REACTI VE NON-REACT [facility] Hepatitis B virus surface Ag NON-REACTI VE NON-REACT [facility] Hepatitis B virus core Ab.IgM NON-REACTI VE NON-REACT [place] Hepatitis C virus Ab NON-REACTI VE NON-REACT [place] [facility] Hepatitis C virus Ab Signal/Cutoff 0.01 <1.00 [facility] 12/29/2017 12:3 6 PM EDT 12/29/2017 3:39 PM EDT Narrative Resulting Agency Comment [id number] Maryam Kingston NP LABORATORY Final Result [facility] [address] [place] [address] from Last 3 Months or Most Recently Relevant to Health Maintenance Care Teams Founder And Chief Executive Officer Relationship Specialty Start Date End Date Shakeel Bui MD PCP - General Family Medicine 10/10/17
--- OUTSIDE RECORDS SUMMARY | 2025-01-23 15:10 | XMS_ITS | Clinical Summary ---
Author Organization [facility] Address [address] [facility] [address] [place] [id number] Phone Care Team Providers Care Non Destructive Evaluation Technician Name Role Phone Rosetta Robles Macrina SALCIDO Primary Care Provider Allergies Active Allergy Reactions Criticality Noted Date Comments Iodinated Contrast Media 10/13/2021 Reports previous vomitting with contrast then caused a panic attack. Patient insists on taking the premed. Omeprazole Hives High 07/09/2021 Medications doxycycline monohydrate (ADOXA) 100 MG tablet Take 1 tablet by mouth 2 (two) times a day. 07/17/2023 Active Active Problems No known active problems Social History Tobacco Use Types Packs/Day Years Used Date Smoking Tobacco: Every Day Education Answer Date Recorded Are you interested in more education? Not on larry e 07/20/2023 Are you concerned about learning? Not on file 07/20/2023 No 07/20/2023 No 07/20/2023 Digital Access Answer Date Recorded No 07/20/2023 No 07/20/2023 Reliable internet access at home? Not on file 07/20/2023 Device with a working camera? Not on file Sex and Gender Information Value Date Recorded Sex Assigned at Not on file Legal Sex Male 6:18 AM EDT Gender Identity Not on file Sexual Orientation Not on file Last Filed Vital Signs Vital Sign Reading Time Taken Comments Blood Pressure 132/85 07/20/2023 8:49 AM EDT Pulse 83 07/20/2023 8:49 AM EDT Temperature 36.8 C (98.3 F) 07/20/2023 8:49 AM EDT Respiratory Rate 16 07/20/2023 8:49 AM EDT Oxygen Saturation 100% 07/20/2023 8:49 AM EDT Inhaled Oxygen Concentration - - Weight 81.6 kg (180 lb) 07/20/2023 8:49 AM EDT Height 172.7 cm (5' 8 ) 07/20/2023 8:49 AM EDT Body Mass Index 27.37 07/20/2023 8:49 AM EDT Plan of Treatment Health Maintenance Due Date Last Done Comments LIPID PANEL 1987 DEPRESSION SCREENING 1999 SMOKING Hx and SMOKELESS TOB ACCO SCREENING 09/25/2000 HEPATITIS C SCREENING 09/25/2005 HIV ONE-TIME SCREENING (18-6 5 YEARS) 09/25/2005 PNEUMOCOCCAL VACCINES (0-49 years) (1 of 2 - PCV) 09/25/2006 SCREENING FOR DIABETES 09/25/2022 INFLUENZA VACCINE (#1) 2024 COVID-19 VACCINE (1 - 2024-2 6 season) 2024 Adult Td,Tdap Booster 01/01/2028 12/31/2017 HEPATITIS A VACCINES Aged Out No long er eligible based on patient's age to complete this topic HIB VACCINES Aged Out No longer eligi ble based on patient's age to complete this topic MENINGOCOCCAL VACCINES (ACWY) Aged Out No longer eligible based on patient's age to complete this topic MENINGOCOCCAL VACCINES (B) Aged Out N o longer eligible based on patient's age to complete this topic Medical Devices Not on file Insurance [facility] [place] [facility] [employer] [employer] [facility] Member Subscriber Plan / Payer (Ef fective 2013-Present) Name:Rasheed Farris Relation to Subscriber:Self Name:Rasheed Farris Payer ID:[id number] (NAIC) Group ID:Not on file Type:Medicaid Phone: Address: [address] [facility] [employer] TO[employer]HER Member Subscriber Plan / Payer (Ef fective 2013-Present) Name:Rasheed Farris Relation to Subscriber:Self Name:Rasheed Farris Payer ID:[id number] (NAIC) Group ID:Not on file Type:Medicaid Address: [address] [place] [address] [employer] Member Subscriber Plan / Payer (Ef fective 2013-Present) Name:Rasheed Farris Relation to Subscriber:Self Name:Rasheed Farris Payer ID:[id number] (NAIC) Group ID:Not on file Type:Medicaid [address]: [address] [facility] [employer] TO[employer]HER Member Subscriber Plan / Payer (Ef fective 2013-Present) Name:Rasheed Farris Relation to Subscriber:Self Name:Rasheed Farris Payer ID:[id number] (NAIC) Group ID:Not on file Type:Medicaid Address: [address] ACO [facility] [employer] [facility] [employer] Member Subscriber Plan / Payer (Ef fective 2013-Present) Name:Rasheed Farris Relation to Subscriber:Self Name:Rasheed Farris Payer ID:[id number] (NAIC) Group ID:Not on file Type:Medicaid Phone: Address: [address] Care Teams Non Destructive Evaluation Technician Relationship Specialty Start Date End Date Rosetta Robles NP [address] [place] [address] [email or web address] PCP - General Nurse Practitioner 07/20/23 Additional Source Comments The information contained in this document represents components of the legal health record. It is not the complete legal health record.[facility]
== END 2025-01-23 15:28 | disposition home or self-care (01) ==
LOC: HO.HMCFM 14:59
PROVIDERS: PCP Family Medicine; Visit Provider Family Medicine
DX: M54.9 Dorsalgia, unspecified (principal)

== ENCOUNTER → 2025-01-23 14:58 | Outpatient (BNVA) | payer SELFPAY | PROVIDERS: PCP Family Medicine; Visit Provider Family Medicine | DX: M54.9 Dorsalgia, unspecified (principal); R19.7 Diarrhea, unspecified | CPT/HCPCS: 99212 ==